=== PATIENT | male | born 1935 | race Caucasian/White ===

== ENCOUNTER 2022-05-11 18:00 | Inpatient (IN) | payer MEDICARE, BC ==
[2022-05-11] MEDS ORDERED: SODIUM CHLORIDE 0.9% 1,000 ML IV STA (23:03)
--- NOTE | 2022-05-11 23:06 | ED ---
Altered Mental Status HPI - General Chief Complaint: Recheck/Abnormal Lab/Rx Stated Complaint: AMS Time Seen by Provider: 05/11/22 23:03 Source: patient, family, RN notes reviewed, old records reviewed, Caregiver Mode of arrival: ambulatory Limitations: no limitations - History of Present Illness Initial Comments: This is a 86-year-old male to the emergency department for evaluation. Family is bringing patient for cognitive evaluation is in with his is cheating on him. There is no just caused him to feel this way. Patient's is apparentl y very sick and unable with us until his hands nature. Patient is being physically and verbally allegedly difficult for his to handle. Family brings patient to the ER regarding his mental condition. MD Complaint: altered mental status, confusion -: unknown Consistency of Symptoms: waxing and waning, getting worse Context: history of similar presentation Associated Symptoms: denies other symptoms Treatments Prior to Arrival: other pre-hospital medication (0) - Related Data Home Medications Medication Instructions Recorded Confirmed No Known Home Medications 05/12/22 05/12/22 Allergies Allergy/AdvReac Type Severity Reaction Status Date / Time No Known Allergies Allergy Verified 05/12/22 09:00 Review of Systems ROS Statement: Those systems with pertinent positive or pertinent negative responses have been documented in the HPI. ROS Other: All systems not noted in ROS Statement are negative. Past Medical History Past Medical History: Atrial Fibrillation History of Any Multi-Drug Resistant Organisms: None Reported Past Surgical History: No Surgical Hx Reported Past Psychological History: No Psychological Hx Reported Smoking Status: Never smoker Past Alcohol Use History: Daily Past Drug Use History: None Reported General Exam Limitations: no limitations, altered mental status, physical limitation General appearance: alert, in no apparent distress, anxious, lethargic Head exam: Present: atraumatic, normocephalic, normal inspection Eye exam: Present: normal appearance, PERRL, EOMI. Absent: scleral icterus, conjunctival injection, periorbital swelling ENT exam: Present: normal exam, mucous membranes moist Neck exam: Present: normal inspection. Absent: tenderness, meningismus, lymphadenopathy Respiratory exam: Present: normal lung sounds bilaterally. Absent: respiratory distress, wheezes, rales, rhonchi, stridor Cardiovascular Exam: Present: regular rate, normal rhythm, normal heart sounds. Absent: systolic murmur, diastolic murmur, rubs, gallop, clicks GI/Abdominal exam: Present: soft, normal bowel sounds. Absent: distended, tenderness, guarding, rebound, rigid Extremities exam: Present: normal inspection, full ROM, normal capillary refill. Absent: tenderness, pedal edema, joint swelling, calf tenderness Back exam: Present: normal inspection Neurological exam: Present: alert, oriented X3, CN II-XII intact Psychiatric exam: Present: normal affect, normal mood Skin exam: Present: warm, dry, intact, normal color. 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 ] Respiratory 13 18 18 Rate Blood Pressure 130/76 127/74 Blood Pressure 159/99 [Right Arm] O2 Sat by Pulse 98 99 97 Oximetry - Reevaluation(s) Reevaluation #1: 05/12/22 Medical record is reviewed Reevaluation #2: 05/12/22 Patient family informed of results here in the emergency department Reevaluation #3: 05/12/22 Patient has no change in symptoms here in the ER - Consultations Consultation #1: spoke with admitting physician and they agree to admit this patient Consultation #2: Spoke with cardiology regarding troponin they are aware Medical Decision Making - Medical Decision Making 86 male in significant distress coming in for dementia reaction patient is unable to get along with his at home. Patient has significantly elevated troponin, patient will be admitted for further evaluation management - Lab Data Result diagrams: 05/13/22 07:53 05/13/22 07:53 Lab Results 05/11/22 05/11/22 05/11/22 Range/Units 23:57 23:57 23:57 WBC 4.6 (3.8-10.6) k/uL RBC 4.14 L (4.30-5.90) m/uL Hgb 11.9 L (13.0-17.5) gm/dL Hct 37.7 L (39.0-53.0) % MCV 91.1 (80.0-100.0) fL MCH 28.8 (25.0-35.0) pg MCHC 31.7 (31.0-37.0) g/dL RDW 14.9 (11.5-15.5) % Plt Count 155 (150-450) k/uL MPV 8.2 Neutrophils % 53 % Lymphocytes % 32 % Monocytes % 9 % Eosinophils % 3 % Basophils % 1 % Neutrophils # 2.4 (1.3-7.7) k/uL Lymphocytes # 1.5 (1.0-4.8) k/uL Monocytes # 0.4 (0-1.0) k/uL Eosinophils # 0.1 (0-0.7) k/uL Basophils # 0.0 (0-0.2) k/uL Hypochromasia Slight PT 10.7 (9.0-12.0) sec INR 1.0 (<1.2) APTT 24.0 (22.0-30.0) sec Sodium 139 (137-145) mmol/L Potassium 4.4 (3.5-5.1) mmol/L Chloride 105 (98-107) mmol/L Carbon Dioxide 27 (22-30) mmol/L Anion Gap 7 mmol/L BUN 23 H (9-20) mg/dL Creatinine 0.81 (0.66-1.25) mg/dL Est GFR (CKD-EPI)AfAm >90 (>60 ml/min/1.73 sqM) Est GFR (CKD-EPI)NonAf 80 (>60 ml/min/1.73 sqM) Glucose 108 H (74-99) mg/dL Plasma Lactic Acid Giovany (0.7-2.0) mmol/L Calcium 9.0 (8.4-10.2) mg/dL Phosphorus 3.6 (2.5-4.5) mg/dL Magnesium 2.2 (1.6-2.3) mg/dL Total Bilirubin 0.6 (0.2-1.3) mg/dL AST 47 (17-59) U/L ALT 22 (4-49) U/L Alkaline Phosphatase 74 (38-126) U/L Ammonia (<30) umol/L Troponin I (0.000-0.034) ng/mL Total Protein 7.3 (6.3-8.2) g/dL Albumin 4.4 (3.5-5.0) g/dL 05/11/22 05/11/22 Range/Units 23:57 23:57 WBC (3.8-10.6) k/uL RBC (4.30-5.90) m/uL Hgb (13.0-17.5) gm/dL Hct (39.0-53.0) % MCV (80.0-100.0) fL MCH (25.0-35.0) pg MCHC (31.0-37.0) g/dL RDW (11.5-15.5) % Plt Count (150-450) k/uL MPV Neutrophils % % Lymphocytes % % Monocytes % % Eosinophils % % Basophils % % Neutrophils # (1.3-7.7) k/uL Lymphocytes # (1.0-4.8) k/uL Monocytes # (0-1.0) k/uL Eosinophils # (0-0.7) k/uL Basophils # (0-0.2) k/uL Hypochromasia PT (9.0-12.0) sec INR (<1.2) APTT (22.0-30.0) sec Sodium (137-145) mmol/L Potassium (3.5-5.1) mmol/L Chloride (98-107) mmol/L Carbon Dioxide (22-30) mmol/L Anion Gap mmol/L BUN (9-20) mg/dL Creatinine (0.66-1.25) mg/dL Est GFR (CKD-EPI)AfAm (>60 ml/min/1.73 sqM) Est GFR (CKD-EPI)NonAf (>60 ml/min/1.73 sqM) Glucose (74-99) mg/dL Plasma Lactic Acid Giovany 1.3 (0.7-2.0) mmol/L Calcium (8.4-10.2) mg/dL Phosphorus (2.5-4.5) mg/dL Magnesium (1.6-2.3) mg/dL Total Bilirubin (0.2-1.3) mg/dL AST (17-59) U/L ALT (4-49) U/L Alkaline Phosphatase (38-126) U/L Ammonia <9 (<30) umol/L Troponin I 6.010 H* (0.000-0.034) ng/mL Total Protein (6.3-8.2) g/dL Albumin (3.5-5.0) g/dL - EKG Data -: EKG Interpreted by Me (EKG is paced at 60 NM 50 QRS 90 QTC) - Radiology Data Radiology results: report reviewed (CT brain is negative for acute disease), image reviewed Disposition Clinical Impression: NSTEMI (non-ST elevated myocardial infarction), Elevated troponin, Stress reaction Disposition: ADMITTED IP TO THIS HOSP Condition: Fair Is patient prescribed a controlled substance at d/c from ED?: No
--- NOTE | 2022-05-11 23:56 | CT ---
EXAMINATION TYPE: CT brain wo con DATE OF EXAM: 05/11/2022 COMPARISON: 05/03/2016 HISTORY: AMS/weakness. prior on PACS CT DLP: 1107.4 mGycm Automated exposure control for dose reduction was used. Ventricles are enlarged. There is cerebral cortical atrophy. There is no mass effect or midline shift . No sign of intracranial hemorrhage. Calvarium is intact. Skull base is intact. IMPRESSION: Cerebral atrophy and hydrocephalus. There is more noticeable atrophy in the temporal lobes in the mid dle cranial fossa bilaterally which has progressed compared to older exam. This was the area of acute subdural hemorrhage on old CT scan. No acute intracranial abnormality. 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
[2022-05-12 00:02] LABS: Basophils % (A) 1 %; Eosinophils # (A) 0.1 k/uL (0-0.7); Eosinophils % (A) 3 %; HCT 37.7 % (39.0-53.0); HGB 11.9 gm/dL (13.0-17.5); Hypochromasia Slight; Lymphocytes # (A) 1.5 k/uL (1.0-4.8); Lymphocytes % (A) 32 %; MCH 28.8 pg (25.0-35.0); MCHC 31.7 g/dL (31.0-37.0); MCV 91.1 fL (80.0-100.0); Mean Platelet Volume 8.2; Monocytes # (A) 0.4 k/uL (0-1.0); Monocytes % (A) 9 %; Neutrophils # (A) 2.4 k/uL (1.3-7.7); Neutrophils % (A) 53 %; Platelet Count 155 k/uL (150-450); RBC 4.14 m/uL (4.30-5.90); RDW 14.9 % (11.5-15.5); WBC 4.6 k/uL (3.8-10.6)
[2022-05-12 00:20] LABS: Lactic Acid, Venous 1.3 mmol/L (0.7-2.0)
[2022-05-12 00:21] LABS: ALT 22 U/L (4-49); AST 47 U/L (17-59); African American GFR (CKD) >90 (>60 ml/min/1.73 sqM); Albumin 4.4 g/dL (3.5-5.0); Alkaline Phosphatase 74 U/L (38-126); Anion Gap 7 mmol/L; Blood Urea Nitrogen 23 mg/dL (9-20); Carbon Dioxide 27 mmol/L (22-30); Chloride 105 mmol/L (98-107); Glucose 108 mg/dL (74-99); Magnesium 2.2 mg/dL (1.6-2.3); Non-African American GFR(CKD) 80 (>60 ml/min/1.73 sqM); Phosphorus 3.6 mg/dL (2.5-4.5); Potassium 4.4 mmol/L (3.5-5.1); Sodium 139 mmol/L (137-145); Total Bilirubin 0.6 mg/dL (0.2-1.3); Total Protein 7.3 g/dL (6.3-8.2)
[2022-05-12 00:24] LABS: Prothrombin Time 10.7 sec (9.0-12.0)
[2022-05-12] MEDS ORDERED: TEMAZEPAM 7.5 MG CAP PO PRN (01:12)
[2022-05-12] MEDS ORDERED: NALOXONE 0.4 MG/ML 1 ML VIAL IV PRN (01:12)
[2022-05-12] MEDS ORDERED: ONDANSETRON 4 MG/2 ML VIAL IVP PRN (01:12)
[2022-05-12] MEDS ORDERED: MORPHINE SULFATE 4 MG/ML SYRINGE IV PRN (01:12)
[2022-05-12] MEDS: SODIUM CHLORIDE 0.9% 1,000 ML IV SCH (02:36)
--- NOTE | 2022-05-12 07:54 | P.HPIM ---
History of Present Illness This is a pleasant 86 years old female with past medical history of atrial fibrillation on Coumadin Respiratory documents (Son states patient cant hear out of his left ear. Son states that patient is hallucinating) However when I saw the patient he was lying in bed comfortable, he is very hard of hearing and I have to come the case with him through writing us questions very appropriately . He knows he is in the hospital. He denies chest pain or dyspnea. He denies nausea vomiting or abdominal pain. He says that sometimes he has increased frequency of urination But no dizziness or headache or weakness or numbness. States he can walk. He denies smoking, illicit drugs. He says occasionally he drinks wine. He denies taking a blood thinner at home and he denies seeing any envelope patternmaker When I told him you have a heart problem he got surprised No family member at bedside Vitas looks stable and patient is afebrile Labs reviewed showed an unremarkable CBC, INR, BMP and liver enzymes. Hemoglobin slightly low at 11.9. Creatinine normal 0.8. Troponin elevated 6.0 on 5.9. EKG showing atrial paced rhythm CT of the brain: No acute intracranial abnormality. 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 HEENT: No recent visual problems or hearing problems. Denied any sore throat. CARDIOVASCULAR: No orthopnea, PND, no palpitations, no syncope. PULMONARY: No shortness of breath, no cough, no hemoptysis. GASTROINTESTINAL: No diarrhea, no nausea, no vomiting, no abdominal pain. Normoactive bowel sounds. NEUROLOGICAL: No headaches, no weakness, no numbness. HEMATOLOGICAL: Denies any bleeding or petechiae. GENITOURINARY: Denies any burning micturition, frequency, or urgency. MUSCULOSKELETAL/RHEUMATOLOGICAL: Denies any joint pain, swelling, or any muscle pain. ENDOCRINE: Denies any polyuria or polydipsia. Past Medical History Past Medical History: Atrial Fibrillation History of Any Multi-Drug Resistant Organisms: None Reported Past Surgical History: No Surgical Hx Reported Past Psychological History: No Psychological Hx Reported Smoking Status: Never smoker Past Alcohol Use History: Daily Past Drug Use History: None Reported Medications and Allergies Home Medications Medication Instructions Recorded Confirmed Type Warfarin [Coumadin] 1 tab PO DAILY 05/03/16 05/03/16 History Allergies Allergy/AdvReac Type Severity Reaction Status Date / Time No Known Allergies Allergy Verified 05/11/22 20:31 Physical Exam Vitals: Vital Signs Temp Pulse Resp BP Pulse Ox 05/12/22 05:28 59 L 13 130/76 98 05/12/22 04:05 60 13 99 05/12/22 00:52 61 12 135/77 98 05/11/22 20:24 97.9 F 60 18 129/76 100 Intake and Output 05/11/22 05/11/22 05/12/22 14:59 22:59 06:59 Other: Weight 77.111 kg -GENERAL: The patient is alert and oriented x3, not in any acute distress. Well developed, well nourished. very hard of hearing HEENT: Pupils are round and equally reacting to light. EOMI. No scleral icterus. No conjunctival pallor. Normocephalic, atraumatic. No pharyngeal erythema. No thyromegaly. CARDIOVASCULAR: S1 and S2 present. No murmurs, rubs, or gallops. PULMONARY: Chest is clear to auscultation, no wheezing or crackles. ABDOMEN: Soft, nontender, nondistended, normoactive bowel sounds. No palpable organomegaly. MUSCULOSKELETAL: No joint swelling or deformity. EXTREMITIES: No cyanosis, clubbing, or pedal edema. NEUROLOGICAL: Gross neurological examination did not reveal any focal deficits. SKIN: No rashes. No petechiae Results CBC & Chem 7: 05/11/22 23:57 05/11/22 23:57 Labs: Abnormal Lab Results - Last 24 Hours (Table) 05/11/22 05/11/22 05/11/22 Range/Units 23:57 23:57 23:57 RBC 4.14 L (4.30-5.90) m/uL Hgb 11.9 L (13.0-17.5) gm/dL Hct 37.7 L (39.0-53.0) % BUN 23 H (9-20) mg/dL Glucose 108 H (74-99) mg/dL Troponin I 6.010 H* (0.000-0.034) ng/mL 05/12/22 Range/Units 03:31 RBC (4.30-5.90) m/uL Hgb (13.0-17.5) gm/dL Hct (39.0-53.0) % BUN (9-20) mg/dL Glucose (74-99) mg/dL Troponin I 5.920 H* (0.000-0.034) ng/mL Assessment and Plan Assessment: Elevated troponin, patient is asymptomatic. rule out cardiac causes Severe hearing difficulty Questionable history Chronic atrial fibrillation on Coumadin with subtherapeutic INR on admission. encephalomalacia in both temporal lobes on computed tomography scan of the brain Plan: This is a pleasant 86 years old male who presents with non-STEMI Do serial troponin check echocardiogram Send urine analysis Labs and medication were reviewed.. Continue same treatment. Continue with symptomatic treatment. Resume home medication. Monitor lytes and vitals. DVT and GI prophylaxis. Further recommendations depends on the clinical course of the patient DVT prophylaxis: Subcutaneous heparin GI Prophylaxis: Pepcid Prognosis is guarded
[2022-05-12] MEDS ORDERED: HEPARIN SODIUM 1,000 UN/ML (10ML VL) IV PRN (08:06)
[2022-05-12] MEDS ORDERED: HEPARIN SODIUM 1,000 UN/ML (10ML VL) IV ONE (08:06)
[2022-05-12] MEDS ORDERED: FAMOTIDINE 20 MG/2 ML VIAL IV SCH (09:00)
[2022-05-12] MEDS ORDERED: HEPARIN SODIUM,PORCINE/PF 5,000 UNIT/0.5 ML SYRINGE SQ SCH (09:00)
[2022-05-12] MEDS: ATORVASTATIN 40 MG TAB PO SCH ×2 (10:28→10:46)
[2022-05-12] MEDS: ASPIRIN 81 MG PO SCH (10:46)
[2022-05-12] MEDS: METOPROLOL TARTRATE 25 MG TAB PO SCH ×2 (10:46→21:14)
[2022-05-12 11:18] LABS: Chol/HDL Ratio 5.05 Ratio; LDL Cholesterol,Calculated 142.8 mg/dL (0.0-131.0); VLDL Calculation 16.76 mg/dL (5.00-40.00)
[2022-05-12] MEDS: HEPARIN SOD,PORK IN 0.45% NACL 25,000 UNIT in 0.45% NACL 1 250ML.BAG IV SCH (11:20)
--- NOTE | 2022-05-12 11:49 | P.CRDCN ---
History of Present Illness History of present illness: HISTORY OF PRESENTING ILLNESS This is a pleasant 86-year-old male past medical history significant for paroxysmal atrial fibrillation previous on anticoagulation stopped secondary to bleeding risk (patient fell hit head and had hemorrhagic bleed per son), pacemaker implantation (unknown details). Unknown who the patients health and wellness coordinator is. We have been asked to see in consultation for elevated troponin. Patient is alert, oriented to person, knows he is in the hospital, unsure of the year. He is able to answer questions appropriately. Hard of hearing. He cannot accurately state why he is in the hospital. Spoke with patient's son on the phone per patient's request, per son patient has been "yelling in his sleep, and seeing things that are not there". He states that recently has been accusing family members of inaccurate situations. He brought the patient to the emergency department for further evaluation. Patient has not been having any symptoms of chest pain, shortness of breath, lightheadedness, dizziness, nausea, vomiting, fever, cough, chills, headaches, weakness or numbness. Patient does not have a known history of CAD, [place], stroke, diabetes or hypertension. Patient states only medications he takes is aspirin daily. Denies tobacco use. States he does occasionally drink wine. DIAGNOSTICS EKG reveals atrial paced rhythm, T-wave inversions in lateral leads and V4-V6, which is new from prior EKG in 2016. Brain CT report revealed no sign of intracranial hemorrhage, or acute intracranial abnormality. More noticeable atrophy in the temporal lobes in the middle cranial fossa bilaterally which has progressed compared to old exam. Laboratory reviewed, troponin 6.0, 5.9, 5.4, sodium 139, potassium 4.4, BUN 23, serum creatinine 0.8, magnesium 2.2, WBC 4.6, hemoglobin 11.9, platelets 155 Current home cardiac medications include aspirin daily REVIEW OF SYSTEMS At the time of my exam: CONSTITUTIONAL: Denies fever or chills. CARDIOVASCULAR: Denies chest pain, shortness of breath, orthopnea, PND or palpitations. RESPIRATORY: Denies cough. GASTROINTESTINAL: Denies abdominal pain, diarrhea, constipation, nausea or vomiting. MUSCULOSKELETAL: Denies myalgias. NEUROLOGIC: Denies numbness, tingling, headacbe or weakness. ENDOCRINE: Denies fatigue, weight change, polydipsia or polyurina. GENITOURINARY: Denies burning, hematuria or urgency with micturation. HEMATOLOGIC: Denies history of anemia or bleeding. PHYSICAL EXAMINATION Blood pressure 127/74, heart rate 60, afebrile, oxygen saturations 97% on room air CONSTITUTIONAL: No apparent distress. HEENT: Head is normocephalic. Pupils are equal, round. Sclerae anicteric. Mucous membranes of the mouth are moist. No JVD. No carotid bruit. CHEST EXAMINATION: Lungs are clear to auscultation. No chest wall tenderness is noted on palpation or with deep breathing. HEART EXAMINATION: Regular rate and rhythm. S1, S2 heard. No murmurs, gallops or rub. ABDOMEN: Soft, nontender. Positive bowel sounds. EXTREMITIES: 2+ peripheral pulses, no lower extremity edema and no calf tenderness. NEUROLOGIC EXAMINATION: Patient is awake, alert and oriented x3. ASSESSMENT Elevated troponin, possible NSTEMI Altered mental status History of paroxysmal atrial fibrillation not on anticoagulation secondary to bleeding risk History of pacemaker implantation PLAN Obtain 2D echocardiogram and doppler study to assess cardiac structure and function. Start IV Heparin Start aspirin, statin, metoprolol tartrate 25mg BID Spoke with patient's son in detail he states that his father has been very adamant on no surgery/invasive procedures. Further recommendations based on clinical course Nurse practitioner note has been reviewed by physician. Signing provider agrees with the documented findings, assessment, and plan of care. Past Medical History Past Medical History: Atrial Fibrillation History of Any Multi-Drug Resistant Organisms: None Reported Past Surgical History: No Surgical Hx Reported Past Psychological History: No Psychological Hx Reported Smoking Status: Never smoker Past Alcohol Use History: Daily Past Drug Use History: None Reported Medications and Allergies Home Medications Medication Instructions Recorded Confirmed Type No Known Home Medications 05/12/22 05/12/22 History Allergies Allergy/AdvReac Type Severity Reaction Status Date / Time No Known Allergies Allergy Verified 05/12/22 09:00 Physical Exam Vitals: Vital Signs Temp Pulse Resp BP Pulse Ox 05/12/22 05:28 59 L 13 130/76 98 05/12/22 04:05 60 13 99 05/12/22 00:52 61 12 135/77 98 05/11/22 20:24 97.9 F 60 18 129/76 100 Intake and Output 05/11/22 05/12/22 05/12/22 22:59 06:59 14:59 Other: Weight 77.111 kg Results 05/11/22 23:57 05/11/22 23:57 Cardiac Enzymes 05/11/2222 05/12/22 Range/Units 23:57 23:57 03:31 AST 47 (17-59) U/L Troponin I 6.010 H* 5.920 H* (0.000-0.034) ng/mL Coagulation 05/11/22 Range/Units 23:57 PT 10.7 (9.0-12.0) sec APTT 24.0 (22.0-30.0) sec CBC 05/11/22 Range/Units 23:57 WBC 4.6 (3.8-10.6) k/uL RBC 4.14 L (4.30-5.90) m/uL Hgb 11.9 L (13.0-17.5) gm/dL Hct 37.7 L (39.0-53.0) % Plt Count 155 (150-450) k/uL Comprehensive Metabolic Panel 05/11/22 Range/Units 23:57 Sodium 139 (137-145) mmol/L Potassium 4.4 (3.5-5.1) mmol/L Chloride 105 (98-107) mmol/L Carbon Dioxide 27 (22-30) mmol/L BUN 23 H (9-20) mg/dL Creatinine 0.81 (0.66-1.25) mg/dL Glucose 108 H (74-99) mg/dL Calcium 9.0 (8.4-10.2) mg/dL AST 47 (17-59) U/L ALT 22 (4-49) U/L Alkaline Phosphatase 74 (38-126) U/L Total Protein 7.3 (6.3-8.2) g/dL Albumin 4.4 (3.5-5.0) g/dL Current Medications Generic Name Dose Route Start Last Admin Trade Name Freq PRN Reason Stop Dose Admin Aspirin 81 mg 05/12/22 09:00 Aspirin 81 Mg PO DAILY [facility] Atorvastatin Calcium 80 mg 05/12/22 09:00 Atorvastatin 40 Mg Tab PO DAILY [facility] Famotidine 20 mg 05/12/22 09:00 Famotidine 20 Mg/2 Ml Vial IV Q12HR [facility] Heparin Sodium (Porcine) 0 unit 05/12/22 08:06 Heparin Sodium 1,000 Un/Ml (10ml Vl) IV PER PROTOCOL PRN Low PTT Protocol Sodium Chloride 1,000 mls @ 20 mls/hr 05/12/22 01:15 05/12/22 02:36 Saline 0.9% IV 20 mls/hr .Q24H ANYA Administration Heparin Sodium/Sodium Chloride 250 mls @ 9.253 mls/hr 05/12/22 08:15 25,000 unit/ Sodium Chloride IV .Q24H NAYA Protocol 12 UNITS/KG/HR Morphine Sulfate 4 mg 05/12/22 01:12 Morphine Sulfate 4 Mg/Ml Syringe IV Q4HR PRN Severe Pain Naloxone HCl 0.2 mg 05/12/22 01:12 Naloxone 0.4 Mg/Ml 1 Ml Vial IV Q2M PRN Opioid Reversal Ondansetron HCl 4 mg 05/12/22 01:12 Ondansetron 4 Mg/2 Ml Vial IVP Q8HR PRN Nausea And Vomiting Temazepam 15 mg 05/12/22 01:12 Temazepam 7.5 Mg Cap PO HS PRN Insomnia Intake and Output 05/11/22 05/12/22 05/12/22 22:59 06:59 14:59 Other: Weight 77.111 kg 05/11/22 23:57 05/11/22 23:57
--- NOTE | 2022-05-12 12:27 | CA ---
Transthoracic Echo Report Name: Jace Guthrie Age: 86 Gender: M : 1935 Exam Date: 05/12/2022 09:47 Exam Location: [facility] Ht (in): 65 Wt (lb): 170 Ordering Physician: Lex Nicolas MD Attending/Referring Phys: Manugrapher Nathaly Ely RDCS Procedure CPT: Indications: Rule out heart disease Cardiac Hx: Technical Quality: Fair Contrast 1: Total Dose (mL): Contrast 2: Total Dose (mL): MEASUREMENTS (Male / Female) Normal Values 2D ECHO LV Diastolic Diameter PLAX 4.1 cm 4.2 - 5.9 / 3.9 - 5.3 cm LV Systolic Diameter PLAX 2.0 cm IVS Diastolic Thickness 1.6 cm 0.6 - 1.0 / 0.6 - 0.9 cm LVPW Diastolic Thickness 1.8 cm 0.6 - 1.0 / 0.6 - 0.9 cm LV Relative Wall Thickness 0.8 RV Internal Dim ED PLAX 3.1 cm LA Volume 48.6 cm??? 18 - 58 / 22 - 52 cm??? M-MODE Aortic Root Diameter MM 3.1 cm LA Systolic Diameter MM 3.7 cm LA Ao Ratio MM 1.2 AV Cusp Separation MM 1.8 cm DOPPLER AV Peak Velocity 149.4 cm/s AV Peak Gradient 8.9 mmHg AI Peak Velocity 422.0 cm/s AI Peak Gradient 71.2 mmHg AI Pressure Half Time 657.0 ms LVOT Peak Velocity 77.9 cm/s LVOT Peak Gradient 2.4 mmHg MV Area PHT 3.1 cm??? Mitral E Point Velocity 78.3 cm/s Mitral A Point Velocity 38.9 cm/s Mitral E to A Ratio 2.0 MV Deceleration Time 241.9 ms MV E' Velocity 4.2 cm/s Mitral E to MV E' Ratio 18.5 TR Peak Velocity 313.4 cm/s TR Peak Gradient 39.3 mmHg Right Ventricular Systolic Press 44.1 mmHg FINDINGS Left Ventricle Moderately increased left ventricular wall thickness. Left ventricular ejection fraction is estimated at 45-50 %. Questionable mid anterior and apical lateral wall hypokinesis. Right Ventricle Normal right ventricular size. Mild pulmonary hypertension. Right Atrium Normal right atrial size. Catheter/pacemaker wire in the right atrial cavity. Left Atrium Normal left atrial size. No evidence for an atrial septal defect. Mitral Valve Mild mitral annular calcification. Mild mitral regurgitation. Aortic Valve Trileaflet aortic valve. Aortic valve sclerosis. Mild aortic regurgitation. Tricuspid Valve Mild tricuspid regurgitation. Pulmonic Valve Mild pulmonic regurgitation. Pericardium No pericardial effusion. Aorta Normal size aortic root and proximal ascending aorta. CONCLUSIONS Mild LV systolic dysfunction with an ejection fraction of 45% Anteroapical hypokinesis Atypical septal motion Mild mitral and dilated regurgitation Previewed by: Dr. Sedrick Dyer MD (Electronically Signed) Final Date: 12 May 2022 12:26
--- NOTE | 2022-05-12 13:51 | P.CN ---
Psychiatric Consult - . Consult date: 05/12/22 Consult:: 05/12/22 12:13 IDENTIFYING DATA: This patient is a 86 yo male REASON FOR REFERRAL: Psychiatry was consulted for "stress" HISTORY OF PRESENT ILLNESS: The patient presented to the hospital for concerns of chest pain. Patient apparently had elevated troponins and was found to have an an NSTEMI. Cardiology is on board and currently following patient. Patient's nurse states that his was concerned that patient was acting "delusional" and believes that she was cheating on him. Patient was seen in the room today about to eat his lunch and acknowledged automobile service writer for conversation. Patient was difficult to direct during conversation and was loud at times. 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 Patient was a poor historian and gave unreliable history and was focused on wanting to eat his food and asked for help with his tray. He appeared to have fairly poor insight into his need for treatment and eating in the hospital. Patient did not endorse any anxiety or depression is not endorsing any delusions at this time. He was oriented 3, poor concentration. At this time patient denies any suicidal or homical ideations, intent or plan. Patient denies any auditory, visual hallucinations and denies any paranoia or delusions. Patient did get upset at automobile service writer towards the end of the interview and stated "Im not a mental case, get out of here". Rest of history was unable to be obtained from patient. PAST PSYCHIATRIC HISTORY: Patient has a a history of dementia. PAST MEDICAL HISTORY: Atrial Fibrillation ALLERGIES: as per EMR. CHEMICAL DEPENDENCY HISTORY: Unable to obtain FAMILY PSYCHIATRIC/SUBSTANCE USE HISTORY: unable to obtain SOCIAL HISTORY: unable to assess MENTAL STATUS EXAM: General Appearance: Patient appears to be short in stature, stated age is alert, difficult to redirect and communicate with. Patient appears to have fair hygiene and grooming wearing hospital gown with fair eye contact. Behavior: Patient is calmly sitting on side of bed without any agitated beha vior. Speech: Patient's speech is fluent and nonpressured. loud at times. Mood/Affect: Patient reports their mood is "ok", affect is congruent Suicidality/Homicidality: Patient denies having any suicidal or homicidal ideation intent or plan. Perceptions: Patient denies any visual hallucinations and denies any auditory hallucinations Though content/process: poverty of content. concrete. demanding at times. not endorsing paranoia. Memory and concentration: AOX3, poor concentration. Cannot spell "WORLD" backwards Judgment and insight: poor IMPRESSIONS: Dementia without behavioral disturbances PLAN: -At this time patient DOES NOT meet criteria for inpatient psychiatric admission. -Delirium precautions recommended with patient including - avoiding use of narcotics and COMPLIANCE INVESTIGATOR sedatives, limit anticholinergic medications when possible, frequent re-orientation, minimize use of restraints, open window shades during the day and close them at night -Would recommend the following medication changes/additions: Seroquel 12.5 mg qhs for sleep/paranoia. -pony worker to provide patient with outpatient mental health/psychiatry resources for appropriate follow up upon discharge -Bpm Solution Architect spoke with patient about substance abuse and the harmful effects on medical and mental health, patient verbally understood and agreed. -Communicated plan to patient's nurse -Psychiatry will sign off at this time -Please contact with any questions.
[2022-05-12] MEDS ORDERED: HALOPERIDOL LACTATE 5 MG/ML 1 ML VIAL IVP ONE (16:30)
[2022-05-12 17:09] LABS: Appearance,Urine Clear (Clear); Bilirubin,Urine Negative (Negative); Blood,Urine Negative (Negative); Color,Urine Yellow; Glucose,Urine (UA) Negative (Negative); Ketones,Urine Negative (Negative); Leukocyte Esterase,Urine Negative (Negative); Nitrite,Urine Negative (Negative); PH, Urine 5.5 (5.0-8.0); Protein,Urine Negative (Negative); Specific Gravity,Urine 1.013 (1.001-1.035); Urobilinogen,Urine <2.0 mg/dL (<2.0)
[2022-05-12] MEDS: QUEtiapine 25 MG TAB PO SCH (21:14)
[2022-05-12] MEDS: FAMOTIDINE 20 MG TAB PO SCH (21:14)
--- NOTE | 2022-05-13 02:05 | CT ---
EXAM: CT Head Without Intravenous Contrast CLINICAL HISTORY: ITS.REASON CT Reason: confusion TECHNIQUE: Axial computed tomography images of the head/brain without intravenous contrast. CTDI is 49.1 mGy and DLP is 1121 mGy-cm. This CT exam was performed using one or more of the following dose reduction techniques: automated exposure control, adjustment of the mA and/or kV according to patient size, and/or use of iterative reconstruction technique. COMPARISON: Comparison made to prior head CT from May 11, 2022. FINDINGS: Brain: Remote injuries of the bilateral inferofrontal and temporal lobes with encephalomalacia and gliosis. No hemorrhage. No significant white matter disease. No edema. Ventricles: Ventriculomegaly. Bones/joints: Unremarkable. No acute fracture. Soft tissues: Right lens replacement. Sinuses: Unremarkable as visualized. No acute sinusitis. Mastoid air cells: Unremarkable as visualized. No mastoid effusion. IMPRESSION: No evidence of acute intracranial pathology.
[2022-05-13] MEDS: SODIUM CHLORIDE 0.9% 1,000 ML IV SCH ×2 (02:59→12:31)
[2022-05-13] MEDS: ATORVASTATIN 40 MG TAB PO SCH ×2 (08:01→09:24)
[2022-05-13] MEDS: ASPIRIN 81 MG PO SCH (08:01)
[2022-05-13] MEDS: METOPROLOL TARTRATE 25 MG TAB PO SCH ×2 (08:01→20:53)
[2022-05-13] MEDS: FAMOTIDINE 20 MG TAB PO SCH (08:02)
[2022-05-13] MEDS ORDERED: HALOPERIDOL LACTATE 5 MG/ML 1 ML VIAL IVP PRN (08:26)
[2022-05-13 09:24] LABS: Basophils % (A) 0 %; Eosinophils # (A) 0.1 k/uL (0-0.7); Eosinophils % (A) 3 %; HCT 38.4 % (39.0-53.0); HGB 12.2 gm/dL (13.0-17.5); Hypochromasia Slight; Lymphocytes # (A) 0.8 k/uL (1.0-4.8); Lymphocytes % (A) 18 %; MCH 29.1 pg (25.0-35.0); MCHC 31.7 g/dL (31.0-37.0); MCV 91.8 fL (80.0-100.0); Mean Platelet Volume 8.5; Monocytes # (A) 0.3 k/uL (0-1.0); Monocytes % (A) 6 %; Neutrophils # (A) 3.4 k/uL (1.3-7.7); Neutrophils % (A) 72 %; Platelet Count 159 k/uL (150-450); RBC 4.18 m/uL (4.30-5.90); RDW 15.1 % (11.5-15.5); WBC 4.7 k/uL (3.8-10.6)
[2022-05-13 09:26] LABS: Partial Thromboplastin Time 65.6 sec (22.0-30.0); Prothrombin Time 11.1 sec (9.0-12.0)
[2022-05-13 09:36] LABS: Calcium 8.8 mg/dL (8.4-10.2); Potassium 4.3 mmol/L (3.5-5.1)
[2022-05-13] MEDS: HEPARIN SOD,PORK IN 0.45% NACL 25,000 UNIT in 0.45% NACL 1 250ML.BAG IV SCH (11:44)
[2022-05-13] MEDS: CLOPIDOGREL 75 MG TAB PO SCH (11:45)
--- NOTE | 2022-05-13 12:15 | P.PN ---
Subjective This is a pleasant 86-year-old male past medical history significant for paroxysmal atrial fibrillation previous on anticoagulation stopped secondary to bleeding risk (patient fell hit head and had hemorrhagic bleed per son), pacemaker implantation at [place] years ago per family. Unknown who the patients picking supervisor is. Daughter states he did get a generator change years ago at [place]. We have been asked to see in consultation for elevated troponin. Patient presented to the ER for evaluation secondary to altered mental status. He is a poor historian. He cannot accurately state why he is in the hospital. Per family patient has been "yelling in his sleep, and seeing things that are not there". He states that recently has been accusing family members of inaccurate situations. Patient has not been having any symptoms of chest pain, shortness of breath, lightheadedness, dizziness, nausea, vomiting, fever, cough, chills, headaches, weakness or numbness. Patient does not have a known history of CAD, [place], stroke, diabetes or hypertension. Patient states only medications he takes is aspirin daily. Denies tobacco use. On admission patient found to have troponin elevation of 6.0, 5.9, 5.4, Echo revealed EF 45%, anteroapical hypokinesis, atypical septal motion, mild mitral dilated regurgitation. Patient seen and examined at bedside, patient is lethargic, no complaints. Daughter at bedside. Vitals signs are stable. He is currently maintained on IV heparin drip, aspirin, statin, beta eduarda. PHYSICAL EXAMINATION Vitals reviewed CONSTITUTIONAL: No apparent distress. HEENT: Neck Supple. No JVD. No carotid bruit. CHEST EXAMINATION: Lungs are clear to auscultation. No chest wall tenderness is noted on palpation or with deep breathing. HEART EXAMINATION: Regular rate and rhythm. S1, S2 heard. No murmurs, gallops or rub. ABDOMEN: Soft, nontender. Positive bowel sounds. EXTREMITIES: 2+ peripheral pulses, no lower extremity edema and no calf tenderness. NEUROLOGIC EXAMINATION: Patient is awake, alert and oriented x3. ASSESSMENT Elevated troponin, possible NSTEMI Altered mental status History of paroxysmal atrial fibrillation not on anticoagulation secondary to bleeding risk History of pacemaker implantation Cardiomyopathy with EF 45%, ischemic vs non-ischemic PLAN Stop IV heparin Start low dose ACEI lisinopril 2.5mg daily Start aspirin, statin, metoprolol tartrate 25mg BID Spoke with patient's son an daughter in detail, they state the patient would not want any surgery/invasive procedures and they would like to continue with medical therapy. Patient's code status has changed to DNR. We will continue to follow patient and make adjustments accordingly Nurse practitioner note has been reviewed by physician. Signing provider agrees with the documented findings, assessment, and plan of care. Objective - Vital Signs Vital signs: Vital Signs Temp 97.6 F 05/13/22 08:00 Pulse 60 05/13/22 08:00 Resp 18 05/13/22 04:00 BP 137/75 05/13/22 08:00 Pulse Ox 95 05/13/22 08:00 FiO2 Intake & Output 05/12/22 05/13/22 05/13/22 18:59 06:59 18:59 Output Total 340 Balance -340 Weight 77.111 kg Output: Urine 340 Straight 320 Other: Voiding Method Toilet Urinal Bedside Commode # Voids 2 1 - Labs CBC & Chem 7: 05/13/22 07:53 05/13/22 07:53 Labs: Abnormal Lab Results - Last 24 Hours (Table) 05/12/22 05/12/22 05/13/22 Range/Units 14:05 17:06 07:53 RBC (4.30-5.90) m/uL Hgb (13.0-17.5) gm/dL Hct (39.0-53.0) % Lymphocytes # (1.0-4.8) k/uL APTT 55.0 H 50.7 H 65.6 H (22.0-30.0) sec 05/13/22 Range/Units 07:53 RBC 4.18 L (4.30-5.90) m/uL Hgb 12.2 L (13.0-17.5) gm/dL Hct 38.4 L (39.0-53.0) % Lymphocytes # 0.8 L (1.0-4.8) k/uL APTT (22.0-30.0) sec
[2022-05-13] MEDS: QUEtiapine 25 MG TAB PO SCH (20:53)
--- NOTE | 2022-05-13 21:18 | P.PN ---
Subjective This is a pleasant 86 years old female with past medical history of atrial fibrillation on Coumadin Respiratory documents (Son states patient cant hear out of his left ear. Son states that patient is hallucinating) However when I saw the patient he was lying in bed comfortable, he is very hard of hearing and I have to come the case with him through writing us questions very appropriately . He knows he is in the hospital. He denies chest pain or dyspnea. He denies nausea vomiting or abdominal pain. He says that sometimes he has increased frequency of urination But no dizziness or headache or weakness or numbness. States he can walk. He denies smoking, illicit drugs. He says occasionally he drinks wine. He denies taking a blood thinner at home and he denies seeing any operations research manager When I told him you have a heart problem he got surprised No family member at bedside Vitas looks stable and patient is afebrile Labs reviewed showed an unremarkable CBC, INR, BMP and liver enzymes. Hemoglobin slightly low at 11.9. Creatinine normal 0.8. Troponin elevated 6.0 on 5.9. EKG showing atrial paced rhythm CT of the brain: No acute intracranial abnormality. Encephalomalacia in both temporal lobes In the emergency room patient received normal saline Pediatric Care Coordinator and psychiatric were consulted 05/13/2022 yesterday patient was more agitated overnight, CT of the brain showing no acute hemorrhage, today daughter at bedside to that one month ago he was normally functional before he started getting more confusion lately over the last few days and weeks. Once family was requesting for the neurologist evaluation. Other than that he is hemodynamically stable, laps looks stable. Heparin drip was stopped and patient started on Plavix and continued on small dose of lisinopril, aspirin and statin. CODE STATUS I changed to DO NOT RESUSCITATE today per family Objective - Vital Signs Vital signs: Vital Signs Temp 97.6 F 05/13/22 08:00 Pulse 60 05/13/22 08:00 Resp 18 05/13/22 04:00 BP 137/75 05/13/22 08:00 Pulse Ox 95 05/13/22 08:00 FiO2 Intake & Output 05/12/22 05/13/22 05/13/22 18:59 06:59 18:59 Output Total 340 Balance -340 Weight 77.111 kg Output: Urine 340 Straight 320 Other: Voiding Method Toilet Urinal Bedside Commode # Voids 2 1 - Exam -GENERAL: The patient is alert and awake, calm, hard of hearing not in any acute distress. Well developed, well nourished. HEENT: Pupils are round and equally reacting to light. EOMI. No scleral icterus. No conjunctival pallor. Normocephalic, atraumatic. No pharyngeal erythema. No thyromegaly. CARDIOVASCULAR: S1 and S2 present. No murmurs, rubs, or gallops. PULMONARY: Chest is clear to auscultation, no wheezing or crackles. ABDOMEN: Soft, nontender, nondistended, normoactive bowel sounds. No palpable organomegaly. MUSCULOSKELETAL: No joint swelling or deformity. EXTREMITIES: No cyanosis, clubbing, or pedal edema. NEUROLOGICAL: Gross neurological examination did not reveal any focal deficits. SKIN: No rashes. no petechiae. - Labs CBC & Chem 7: 05/13/22 07:53 05/13/22 07:53 Labs: Abnormal Lab Results - Last 24 Hours (Table) 05/12/22 05/12/22 05/13/22 Range/Units 14:05 17:06 07:53 RBC (4.30-5.90) m/uL Hgb (13.0-17.5) gm/dL Hct (39.0-53.0) % Lymphocytes # (1.0-4.8) k/uL APTT 55.0 H 50.7 H 65.6 H (22.0-30.0) sec 05/13/22 Range/Units 07:53 RBC 4.18 L (4.30-5.90) m/uL Hgb 12.2 L (13.0-17.5) gm/dL Hct 38.4 L (39.0-53.0) % Lymphocytes # 0.8 L (1.0-4.8) k/uL APTT (22.0-30.0) sec Assessment and Plan Assessment: Elevated troponin, patient is asymptomatic. rule out cardiac causes AMS, most likely metabolic encephalopathy, with possible underlying dementia Severe hearing difficulty Questionable history Chronic atrial fibrillation on Coumadin with subtherapeutic INR on admission. encephalomalacia in both temporal lobes on computed tomography scan of the brain Plan: This is a pleasant 86 years old male who presents with non-STEMI Continue with aspirin and Plavix per operations research manager Neurology consult Labs and medication were reviewed.. Continue same treatment. Continue with symptomatic treatment. Resume home medication. Monitor lytes and vitals. DVT and GI prophylaxis. Further recommendations depends on the clinical course of the patient DVT prophylaxis: Subcutaneous heparin GI Prophylaxis: Pepcid Prognosis is guarded
[2022-05-14] MEDS: METOPROLOL TARTRATE 25 MG TAB PO SCH ×2 (08:28→21:43)
[2022-05-14] MEDS: CLOPIDOGREL 75 MG TAB PO SCH (08:28)
[2022-05-14] MEDS: ATORVASTATIN 40 MG TAB PO SCH (08:28)
[2022-05-14] MEDS: FAMOTIDINE 20 MG TAB PO SCH (08:28)
[2022-05-14] MEDS: ASPIRIN 81 MG PO SCH (08:28)
[2022-05-14 09:33] LABS: Basophils % (A) 0 %; Eosinophils # (A) 0.1 k/uL (0-0.7); Eosinophils % (A) 3 %; HCT 37.9 % (39.0-53.0); HGB 11.9 gm/dL (13.0-17.5); Hypochromasia Slight; Lymphocytes # (A) 0.9 k/uL (1.0-4.8); Lymphocytes % (A) 18 %; MCH 28.9 pg (25.0-35.0); MCHC 31.3 g/dL (31.0-37.0); MCV 92.3 fL (80.0-100.0); Mean Platelet Volume 8.2; Monocytes # (A) 0.3 k/uL (0-1.0); Monocytes % (A) 7 %; Neutrophils # (A) 3.3 k/uL (1.3-7.7); Neutrophils % (A) 70 %; Platelet Count 152 k/uL (150-450); RBC 4.11 m/uL (4.30-5.90); RDW 15.5 % (11.5-15.5); WBC 4.8 k/uL (3.8-10.6)
[2022-05-14 09:43] LABS: Calcium 9.1 mg/dL (8.4-10.2); Potassium 4.5 mmol/L (3.5-5.1)
--- NOTE | 2022-05-14 11:10 | P.PN ---
Subjective This is a pleasant 86-year-old male past medical history significant for paroxysmal atrial fibrillation previous on anticoagulation stopped secondary to bleeding risk (patient fell hit head and had hemorrhagic bleed per son), pacemaker implantation at [place] years ago per family. Currently does not follow with a liquor tester. Daughter states he did get a generator change years ago at [place]. We have been asked to see in consultation for elevated troponin. Patient presented to the ER for evaluation secondary to altered mental status. He is a poor historian. He cannot accurately state why he is in the hospital. On admission patient found to have troponin elevation of 6.0, 5.9, 5.4, Echo revealed EF 45%, anteroapical hypokinesis, atypical septal motion, mild mitral dilated regurgitation. He had no symptoms of chest pain, shortness of breath. Family and patient did not want any invasive therapy and he has been treated medically. 05/14/2022 Patient seen and examined at bedside, patient is more alert this morning. He denies any complaints. No shortness of breath or chest pain. Vitals signs are stable. He is currently maintained on aspirin, statin, Plavix 75mg daily, Labs, sodium 140, potassium 4.5, BUN 22, serum creatinine 1.04, WBC 4.8, hemoglobin 11.9, platelets 152 PHYSICAL EXAMINATION Vitals reviewed blood pressure 108/59, heart rate 63, afebrile, oxygen saturation 100% on room air CONSTITUTIONAL: No apparent distress. HEENT: Neck Supple. No JVD. No carotid bruit. CHEST EXAMINATION: Lungs are clear to auscultation. No chest wall tenderness is noted on palpation or with deep breathing. HEART EXAMINATION: Regular rate and rhythm. S1, S2 heard. No murmurs, gallops or rub. ABDOMEN: Soft, nontender. Positive bowel sounds. EXTREMITIES: 2+ peripheral pulses, no lower extremity edema and no calf tenderness. NEUROLOGIC EXAMINATION: Patient is awake, alert and oriented x3. ASSESSMENT Elevated troponin, possible NSTEMI Altered mental status History of paroxysmal atrial fibrillation not on anticoagulation secondary to bleeding risk History of pacemaker implantation Cardiomyopathy with EF 45%, ischemic vs non-ischemic PLAN From a cardiology perspective, patient is stable for discharge when cleared by medicine. Continue dual antiplatelet therapy with aspirin and Plavix Continue lisinopril 2.5mg daily Continue aspirin, statin, metoprolol tartrate 25mg BID Spoke with patient's son an daughter in detail, they state the patient would not want any surgery/invasive procedures and they would like to continue with medical therapy. They also would not want anticoagulation for the patient secondary to bleeding risk. Patient's code status has changed to DNR. Nurse practitioner note has been reviewed by physician. Signing provider agrees with the documented findings, assessment, and plan of care. Objective - Vital Signs Vital signs: Vital Signs Temp 98.2 F 05/14/22 04:22 Pulse 63 05/14/22 04:22 Resp 14 05/14/22 04:22 BP 108/59 05/14/22 04:22 Pulse Ox 100 05/14/22 04:22 FiO2 Intake & Output 05/13/22 05/14/22 05/14/22 18:59 06:59 18:59 Intake Total 225.927 240 Output Total 300 200 Balance -74.073 -200 240 Intake: Intake, IV Titration 225.927 Amount Heparin Sod,Pork in 0.45% 225.927 NaCl 25,000 unit In 0.45 % NaCl 1 250ml.bag @ 12 UNITS/KG/HR 9.253 mls/hr IV .Q24H NAYA Rx#: [id number] Oral 240 Output: Urine 300 200 Other: # Voids 1 4 - Labs CBC & Chem 7: 05/14/22 08:59 05/14/22 08:59 Labs: Abnormal Lab Results - Last 24 Hours (Table) 05/14/22 05/14/22 Range/Units 08:59 08:59 RBC 4.11 L (4.30-5.90) m/uL Hgb 11.9 L (13.0-17.5) gm/dL Hct 37.9 L (39.0-53.0) % Lymphocytes # 0.9 L (1.0-4.8) k/uL BUN 22 H (9-20) mg/dL Glucose 118 H (74-99) mg/dL
--- NOTE | 2022-05-14 13:10 | P.CNNES ---
History of Present Illness Consult date: 05/14/22 Requesting physician: Lex Nicolas Reason for Consult: Confusion History of Present Illness: Patient is a 86-year-old male came to the hospital on 05/11/2022 for altered mental status, cognitive evaluation, as patient was believing that his is cheating on him. There is no just cause for him to feel this way. Patient's is apparently very sick. Patient has been very physically and verbally allegedly difficult for his to handle. Patient was brought for mental evaluation. Patient was found to have elevated troponins. Initial CT head 05/11/2022 reported cerebral atrophy and hydrocephalus. There is more noticeable atrophy in the temporal lobes in the middle cranial fossa bilaterally which has progressed compared to order exam. This was the area of acute subdural hemorrhage in the old CT. 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 Repeat CT head 05/13/2022 revealed no acute process. EKG shows electronic atrial pacemaker. 2-D echo revealed mild left ventricular systolic dysfunction with an ejection fraction of 45%. Kendrick-apical hypokinesis. Atypical septal motion. Mild mitral and tricuspid regurgitation. Blood test shows normal WBC hemoglobin 12.2 platelets 159. PT/PTT normal. Chem-7 normal. UA negative. Troponin elevated to 6.010. Lipid panel with cholesterol 199, LDL 142, HDL 39 and triglycerides 83. Ammonia is normal less than 9. Patient at this time tells me that he came to the hospital because to check out his heart. He denies headache. He states his memory is fine. He makes humerus comments like "I remember the day I was born". Patient is extremely hard of hearing, uses writing to communicate. Patient states that he uses walker when he goes outside in sometimes inside his home as well. 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 I spoke to patient's daughter on the phone, who provided excellent history. She says that about 1-1/2 weeks ago patient and his went to have a change of the car. Patient's was talking to the track mechanic, and patient believed that she was cheating on him, and he was her boyfriend. This idea sat in his mind and he continued with this misconception. He he would start yelling on his , who herself has mild dementia. Patient's daughter states that he would have a dream at night, and believes on the dream the next day. Sometimes he is in the middle of the night. She tells me that in 2016 patient was celebrating Father's Day when he drank wine, fell down, hit his head and had a subdural hematoma for which he was transferred to [facility]. He was on anticoagulants prior to the fall for atrial fibrillation. Patient was treated conservatively. Patient has been very stubborn, not goes to the doctor's. Because of high fall risk, anticoagulation was discontinued and was placed on aspirin. Patient would not even take aspirin at home, and has not been taking it. Patient's daughter admits that his balance has been off for last 1-2 years, gradually deteriorating. 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 Patient has history of prostate cancer for which she underwent radiation. Previously was having some incidence of loss of bowel control but lately it has been better. No major urine control issues at this time. Patient's daughter believes that he is still very sharp, knows what is going around the world. I spent 15 minutes on the phone with patient's daughter. Review of Systems As above in detail. Denies any chest pain, abdominal pain nausea vomiting diarrhea. No fever or chills. Patient does have some arthritis. All other review of systems reviewed are unremarkable. Patient is very hard of hearing. Past Medical History Past Medical History: Atrial Fibrillation History of Any Multi-Drug Resistant Organisms: None Reported Past Surgical History: No Surgical Hx Reported Past Anesthesia/Blood Transfusion Reactions: No Reported Reaction, Unable to Obtain Type of Cardiac Device: Unknown Device Placement Date:: 20 years ago, son says battery was just changed Past Psychological History: No Psychological Hx Reported Smoking Status: Never smoker Past Alcohol Use History: Daily Past Drug Use History: None Reported Medications and Allergies Home Medications Medication Instructions Recorded Confirmed Type No Known Home Medications 05/12/22 05/12/22 History Allergies Allergy/AdvReac Type Severity Reaction Status Date / Time No Known Allergies Allergy Verified 05/12/22 09:00 Physical Examination - Vital Signs Vital Signs: Vital Signs Temp Pulse Pulse Resp BP Pulse Ox 05/14/22 08:15 97.7 F 62 16 118/67 99 05/14/22 04:22 98.2 F 63 14 108/59 100 05/14/22 00:00 61 16 119/60 98 06/29/22 20:49 97.8 F 61 16 129/67 96 05/13/22 16:16 97.8 F 62 131/72 97 05/13/22 12:14 98.7 F 60 13 126/68 98 Intake and Output 05/13/22 05/14/22 05/14/22 22:59 06:59 14:59 Intake Total 240 Output Total 500 Balance -500 240 Intake: Oral 240 Output: Urine 500 Other: Voiding Method Urinal # Voids 4 Patient is an elderly male, very pleasant, in no acute distress. Examination took extra time because of hearing impairment and using writing to communicate. Patient is alert awake oriented to time place and person. Patient knows his name, states he is "pushing for 88" regarding his age. He states is in [facility] in [place]. He knows it is May 06 and the name of the current president Mr. Latham. Speech and language functions are normal. Patient can name and repeat. Attention, concentration and fund of knowledge is adequat e. Patient does have positive palmomental reflex bilaterally, and negative visuospatial apraxia. On cranial examination, pupils are round and reacting to light, visual sloan are full on confrontation, extraocular muscles are intact with no nystagmus. Face is symmetric, tongue protrudes to the midline. Palatal elevation and sensation normal, hearing is severely decreased, has to use writing for communication and shoulder shrug normal, facial sensation normal. Shoulder shrug normal. On muscle strength testing, there is no pronator drift and the strength is normal in arms and legs distally and proximally. Deep tendon reflexes are 1 in the upper limbs, trace in the lower limbs and plantars are withdrawal bilaterally. Sensory to touch is equal with no neglect. Cerebellar function showed no ataxia for [id number] testing. Tone and bulk of muscles normal. Gait deferred. On general examination, there is no carotid bruit or murmur, S1-S2 audible. Abdomen is soft nontender. No organomegaly, bowel sounds present. Chest is clear. Peripheral pulses are present. No edema. Results - Laboratory Findings CBC and BMP: 05/14/22 08:59 05/14/22 08:59 Abnormal Lab Findings: Abnormal Labs 05/11/22 05/11/22 05/11/22 23:57 23:57 23:57 RBC 4.14 L Hgb 11.9 L Hct 37.7 L Lymphocytes # APTT BUN 23 H Glucose 108 H Troponin I 6.010 H* LDL Cholesterol, Calc HDL Cholesterol 05/12/22 05/12/22 05/12/22 03:31 05:53 05:53 RBC Hgb Hct Lymphocytes # APTT BUN Glucose Troponin I 5.920 H* 5.420 H* LDL Cholesterol, Calc 142.8 H HDL Cholesterol 39.40 L 05/12/22 05/12/22 05/13/22 14:05 17:06 07:53 RBC Hgb Hct Lymphocytes # APTT 55.0 H 50.7 H 65.6 H BUN Glucose Troponin I LDL Cholesterol, Calc HDL Cholesterol 05/13/22 05/14/22 05/14/22 07:53 08:59 08:59 RBC 4.18 L 4.11 L Hgb 12.2 L 11.9 L Hct 38.4 L 37.9 L Lymphocytes # 0.8 L 0.9 L APTT BUN 22 H Glucose 118 H Troponin I LDL Cholesterol, Calc HDL Cholesterol Assessment and Plan Assessment: * 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 * CT head showed mildly dilated ventricles including the third ventricles, but more significant dilation of temporal horns bilaterally, right more than left. Patient has history of subdural hematoma involving bilateral temporal region in 2016. * Atrial fibrillation * Elevated cardiac enzymes, non-STEMI * Pacemaker * Hyperlipidemia Plan: * Patient has mild cognitive impairment. We will start him on Aricept 5 mg daily. Recommend patient follow up in the neurology office in 2-4 weeks for a follow-up. May consider further optimizing dose of Aricept to 10 mg after one month. 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 It appears patient declines any invasive procedure. I discussed with patient's daughter in detail. Instructed her that if his balance deteriorates, may consider neurosurgical evaluation, a hou patient is very stubborn, does not follow any invasive procedures/treatment. * Psychiatry is also seen the patient, started on Seroquel 12.5 mg at bedtime. * Check B12, folate, TSH. Family requesting testing for Lyme disease, as he is out in the yard, a lot. * Patient does have atrial fibrillation, but not on anticoagulation because of high fall risk and noncompliance with follow-up with Drs. Patient started on aspirin, Plavix 75 mg and statins for non-STEMI. Continue these medications. Discussed with patient's daughter in detail. * Lipid panel with cholesterol 199, LDL 142, HDL 39 and triglycerides 83. * Neurologically clear otherwise. Thank you for the consult. Time with Patient: Greater than 30
--- NOTE | 2022-05-14 14:50 | CDI ---
Documentation Clarification Form Date: 05/14/2022 02:38:09 PM From: Janice White RN CCDS Admit Date: 05/12/2022 01:12:00 AM Patient Name: Jace Guthrie Visit Number: [id number] Discharge Date: ATTENTION: The Clinical Documentation Specialists (CDI) and [facility] Coding Staff appreciate your assistance in clarifying documentation. Please respond to the clarification below the line at the bottom and electronically sign. The CDI & [facility] Coding staff will review the response and follow-up if needed. Please note: Queries are made part of the Legal Health Record. If you have any questions, please contact the author of this message via ITS. Dr. Burnett E Sheet Your patient has the documented diagnosis of unspecified Cardiomyopathy, 05/13, Cardiology progress note. Additional information regarding the cardiomyopathy is requested. History/Risk Factors: 86-year-old male presents to the ED with hallucinating. Medical history: Atrial fib and pacemaker. Clinical Indicators: VS/Pulse OX: 05/11 B/P 127/76 HR 60 RR 18 Temp 97.9F Oral SpO2 100% Room air. Echocardiogram Results: 05/12 mild LV systolic dysfunction with an ejection fraction of 45% Kendrick apical hypokinesis Atypical septal motion Mild mitral and dilated regurgitation Treatment: 05/12 Lopressor 25mg PO BID In your professional opinion, can you please clarify the [acuity and type] of CHF if known? [ ] Chronic Systolic Heart Failure (reduced EF) [ ] Chronic Diastolic Heart Failure (preserved EF) [ ] Chronic Systolic & Diastolic Heart Failure [ ] Other, please specify [ ] Unable to determine (Template Last Revised: December 2020) no CHF MTDD
--- NOTE | 2022-05-14 18:38 | EEG ---
ELECTROENCEPHALOGRAM REPORT DATE OF SERVICE: 05/14/2022 PREAMBLE: This is an 86-year-old male with altered mental status. This study is performed to evaluate for any epileptiform activity. EEG FINDINGS: This is a 21-channel digital EEG recorded with video component, utilizing 10/20 international system with referential and bipolar montages. Background consists of moderately well-developed and -regulated mixed frequencies of some fast frequency beta, intermixed with some alpha and some theta activity in 6 to 7 hertz range. Background is posterior-dominant and reactive to eye opening and closing. Some drowsiness was seen with appearance of bilaterally symmetric theta frequency rhythm. Deeper stages of sleep were not clearly seen. Photic stimulation was not performed. No definitive focal or generalized epileptiform activity was seen. IMPRESSION: This is a mildly abnormal EEG because of slight background disorganization with a mix of fast and slow frequency activity, suggestive of nonspecific generalized cerebral dysfunction as can be seen with mild encephalopathy or medication effect. No epileptiform activity was seen. MMODL / IJN: [id number] /
--- NOTE | 2022-05-14 19:24 | P.PN ---
Subjective This is a pleasant 86 years old female with past medical history of atrial fibrillation on Coumadin Respiratory documents (Son states patient cant hear out of his left ear. Son states that patient is hallucinating) However when I saw the patient he was lying in bed comfortable, he is very hard of hearing and I have to come the case with him through writing us questions very appropriately . He knows he is in the hospital. He denies chest pain or dyspnea. He denies nausea vomiting or abdominal pain. He says that sometimes he has increased frequency of urination But no dizziness or headache or weakness or numbness. States he can walk. He denies smoking, illicit drugs. He says occasionally he drinks wine. He denies taking a blood thinner at home and he denies seeing any delphi developer When I told him you have a heart problem he got surprised No family member at bedside Vitas looks stable and patient is afebrile Labs reviewed showed an unremarkable CBC, INR, BMP and liver enzymes. Hemoglobin slightly low at 11.9. Creatinine normal 0.8. Troponin elevated 6.0 on 5.9. EKG showing atrial paced rhythm CT of the brain: No acute intracranial abnormality. Encephalomalacia in both temporal lobes In the emergency room patient received normal saline Application Integration Architect and psychiatric were consulted 05/13/2022 yesterday patient was more agitated overnight, CT of the brain showing no acute hemorrhage, today daughter at bedside to that one month ago he was normally functional before he started getting more confusion lately over the last few days and weeks. Once family was requesting for the neurologist evaluation. Other than that he is hemodynamically stable, laps looks stable. Heparin drip was stopped and patient started on Plavix and continued on small dose of lisinopril, aspirin and statin. CODE STATUS I changed to DO NOT RESUSCITATE today per family 05/14/2022 Patient looks like more awake and calm today and he answered questions appropriately to me and he follows commands. He remains on aspirin and Plavix for his non-STEMI, which is a stable now and cleared by delphi developer for discharge. No symptoms of chest pain or dyspnea. Neurologist evaluated the patient for dementia and recommended workup like B12, folate, Lyme serology and syphilis antibodies which are pending. EKG showing mild encephalopathy with no epileptiform discharge. Also patient may benefit from neurological evaluation as an outpatient patient and evaluation for normal pressure hydrocephalus per neurologist. Physical therapy recommended subacute rehab Objective - Vital Signs Vital signs: Vital Signs Temp 97.7 F 05/14/22 08:15 Pulse 62 05/14/22 08:15 Resp 16 05/14/22 08:15 BP 118/67 05/14/22 08:15 Pulse Ox 99 05/14/22 08:15 FiO2 Intake & Output 05/13/22 05/14/22 05/14/22 18:59 06:59 18:59 Intake Total 225.927 240 Output Total 300 200 Balance -74.073 -200 240 Intake: Intake, IV Titration 225.927 Amount Heparin Sod,Pork in 0.45% 225.927 NaCl 25,000 unit In 0.45 % NaCl 1 250ml.bag @ 12 UNITS/KG/HR 9.253 mls/hr IV .Q24H NAYA Rx#: [id number] Oral 240 Output: Urine 300 200 Other: Voiding Method Urinal # Voids 1 4 - Exam -GENERAL: The patient is alert and awake, calm, hard of hearing not in any acute distress. Well developed, well nourished. HEENT: Pupils are round and equally reacting to light. EOMI. No scleral icterus. No conjunctival pallor. Normocephalic, atraumatic. No pharyngeal erythema. No thyromegaly. CARDIOVASCULAR: S1 and S2 present. No murmurs, rubs, or gallops. PULMONARY: Chest is clear to auscultation, no wheezing or crackles. ABDOMEN: Soft, nontender, nondistended, normoactive bowel sounds. No palpable organomegaly. MUSCULOSKELETAL: No joint swelling or deformity. EXTREMITIES: No cyanosis, clubbing, or pedal edema. NEUROLOGICAL: Gross neurological examination did not reveal any focal deficits. SKIN: No rashes. no petechiae. - Labs CBC & Chem 7: 05/14/22 08:59 05/14/22 08:59 Labs: Abnormal Lab Results - Last 24 Hours (Table) 05/14/22 05/14/22 Range/Units 08:59 08:59 RBC 4.11 L (4.30-5.90) m/uL Hgb 11.9 L (13.0-17.5) gm/dL Hct 37.9 L (39.0-53.0) % Lymphocytes # 0.9 L (1.0-4.8) k/uL BUN 22 H (9-20) mg/dL Glucose 118 H (74-99) mg/dL Assessment and Plan Assessment: Elevated troponin, patient is asymptomatic. rule out cardiac causes AMS, most likely metabolic encephalopathy, with possible underlying dementia Severe hearing difficulty Questionable history Chronic atrial fibrillation on Coumadin with subtherapeutic INR on admission. encephalomalacia in both temporal lobes on computed tomography scan of the brain Plan: This is a pleasant 86 years old male who presents with non-STEMI Continue with aspirin and Plavix per delphi developer Neurology consult Labs and medication were reviewed.. Continue same treatment. Continue with symptomatic treatment. Resume home medication. Monitor lytes and vitals. DVT and GI prophylaxis. Further recommendations depends on the clinical course of the patient DVT prophylaxis: Subcutaneous heparin GI Prophylaxis: Pepcid Prognosis is guarded
[2022-05-14] MEDS ORDERED: DONEPEZIL 5 MG TAB PO SCH (21:00)
[2022-05-14] MEDS: QUEtiapine 25 MG TAB PO SCH (21:43)
[2022-05-14 23:38] VITALS: PULSE 60
[2022-05-15] MEDS: SODIUM CHLORIDE 0.9% 1,000 ML IV SCH (03:46)
[2022-05-15] MEDS: ASPIRIN 81 MG PO SCH (09:04)
[2022-05-15] MEDS: CLOPIDOGREL 75 MG TAB PO SCH (09:04)
[2022-05-15] MEDS: METOPROLOL TARTRATE 25 MG TAB PO SCH (09:04)
[2022-05-15] MEDS: FAMOTIDINE 20 MG TAB PO SCH (09:04)
[2022-05-15] MEDS: ATORVASTATIN 40 MG TAB PO SCH (09:04)
--- NOTE | 2022-05-15 10:35 | P.DS ---
Providers Date of admission: 05/12/22 01:12 Attending physician: Eliezer Paniagua Consults: 05/12/22 01:12 Consult Physician Routine Consulting Provider: Rico Jean Baptiste Consult Reason/Comments: stress Do you want consulting provider notified?: Already Contacted Consult Physician Routine Consulting Provider: Josep Sheridan Consult Reason/Comments: elevTrop Do you want consulting provider notified?: Yes 05/13/22 12:44 Consult Physician Urgent Consulting Provider: Rodriguez Haq Consult Reason/Comments: confusion Do you want consulting provider notified?: Yes Primary care physician: Gume Duran Sharon [facility]ton Hospital Course: Diagnoses Non-STEMI AMS, most likely metabolic encephalopathy, on the top of underlying dementia. 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 Given his heart disease there is also possibility of elements of vascular dementia Severe hearing difficulty history of paroxysmal atrial fibrillationnot on anticoagulation for bleeding riskR on admission. encephalomalacia in both temporal lobes on computed tomography scan of the brain Low normal vitamin B12 level, been replaced Hospital course This is a pleasant 86 years old female with past medical history of atrial fibrillation, patient presents because of altered mental status. Patient was found to have non-STEMI, his been evaluated by harvester operator secondary to elevated troponin and his been treated with aspirin and Plavix, metoprolol and lisinopril as well as Lipitor. Family did not want any aggressive or invasive procedure since harvester operator recommended to treat him medically. Also patient with periods of confusion most likely has underlying dementia with superimposed metabolic encephalopathy given his multiple medical problems. Treatment, pallidum antibodies are nonreactive. Sheehan more than 20. Vitamin B12 296, vitamin B12 replacement therapy was started. Please be advised that Lyme antibody total IgG/IgM are still pending: please follow-up the results, Also he has an appointment with his PCP Dr. Gume Linder on 05/19 and also he will follow-up this test, case was already discussed with Patient mentation is back to baseline. Patient denies any other symptoms today, no chest pain or dyspnea. No abdominal pain or vomiting. No urinary complaints. Tolerates diet well. He's been able by psychiatrist and placed on small dose of Seroquel at bedtime. Patient was cleared for discharge by all consultants including harvester operator, psychiatrist and neurologist. Physical therapy recommended to rehab and family opted to pursue with this plan. Problems and management plan were discussed with the patient and family and he verbalized understanding and acceptance Patient was found stable and can be discharge to ECF in guarded prognosis however he needs follow-up as an outpatient. Patient was instructed to follow up with PCP within one week and patient agrees Patient will need to follow up with his PCP Dr. Dunaway as above Physical exam -Gen: patient is awake and alert, hard of hearing, agitated at times, most of the times., no distress CVS: S1-S2, RRR, no murmur Lungs: B/L CTA, no wheezing Abdomen: soft, no distention, no tenderness, positive bowel sounds Extremity: no leg edema or induration Time spent more than 35 minutes Patient Condition at Discharge: Fair Plan - Discharge Summary New Discharge Prescriptions: New Donepezil [Aricept] 5 mg PO HS #30 tab Aspirin 81 mg PO DAILY #30 tab Atorvastatin [Lipitor] 40 mg PO DAILY #30 tab Metoprolol Tartrate [Lopressor] 25 mg PO BID #60 tab Famotidine [Pepcid] 20 mg PO DAILY #60 tab Clopidogrel [Plavix] 75 mg PO DAILY #30 tab QUEtiapine [SEROquel] 12.5 mg PO HS #15 tab lisinopriL [Zestril] 2.5 mg PO DAILY #30 tab Discharge Medication List Aspirin 81 mg PO DAILY #30 tab 05/14/22 [Rx] Atorvastatin [Lipitor] 40 mg PO DAILY #30 tab 05/14/22 [Rx] Clopidogrel [Plavix] 75 mg PO DAILY #30 tab 05/14/22 [Rx] Donepezil [Aricept] 5 mg PO HS #30 tab 05/14/22 [Rx] Famotidine [Pepcid] 20 mg PO DAILY #60 tab 05/14/22 [Rx] Metoprolol Tartrate [Lopressor] 25 mg PO BID #60 tab 05/14/22 [Rx] QUEtiapine [SEROquel] 12.5 mg PO HS #15 tab 05/14/22 [Rx] lisinopriL [Zestril] 2.5 mg PO DAILY #30 tab 05/14/22 [Rx] Follow up Appointment(s)/Referral(s): Josep Sheridan MD [STAFF PHYSICIAN] - 2 Weeks Gume Herrera MD [Primary Care Provider] - 05/19/22 12:00 pm ()
[2022-05-15 11:10] VITALS: BP 124/71; RESP 18; TEMP 98
[2022-05-15 12:06] LABS: Lyme IgG/IgM 0.02 Index
[2022-05-16] MEDS ORDERED: CYANOCOBALAMIN 500 MCG TAB PO SCH (09:00)
== END 2022-05-15 15:20 | DRG 280 ==
LOC: EC 18:00 → 3SCARD 05-12 01:12
PROVIDERS: ADMIT Hospitalist; ATTEND Hospitalist
DX: I21.4 Non-ST elevation (NSTEMI) myocardial infarction (principal); G93.41 Metabolic encephalopathy; G91.9 Hydrocephalus, unspecified; F03.90 Unspecified dementia, unspecified severity, without behavioral disturbance, psychotic disturbance, mood disturbance, and anxiety; H91.90 Unspecified hearing loss, unspecified ear; E78.5 Hyperlipidemia, unspecified; M19.90 Unspecified osteoarthritis, unspecified site; G93.89 Other specified disorders of brain; I25.5 Ischemic cardiomyopathy; I48.0 Paroxysmal atrial fibrillation; Z95.0 Presence of cardiac pacemaker; Z66 Do not resuscitate; Z79.01 Long term (current) use of anticoagulants; Z79.02 Long term (current) use of antithrombotics/antiplatelets; Z79.82 Long term (current) use of aspirin; Z85.46 Personal history of malignant neoplasm of prostate; Z91.81 History of falling
CPT/HCPCS: 36415; 70450; 80048; 80053; 80061; 81003; 82140; 82607; 82746; 83605; 83735; 84100; 84443; 84484; 85025; 85610; 85730; 86618; 86780; 93005; 93306; 95816; 96361; 96365; 96366; 99285

== ENCOUNTER 2023-05-01 09:41 | Inpatient (IN) | payer BC, MEDICARE ==
[2023-05-01] MEDS ORDERED: DIPH,PERTUS(ACELL)TETVAC-LF 0.5 ML VIAL IM ONE (10:16)
[2023-05-01] MEDS ORDERED: SODIUM CHLORIDE 0.9% 1,000 ML IV ONE (10:20)
--- NOTE | 2023-05-01 10:20 | ED ---
General Adult HPI - General Chief complaint: Fall Stated complaint: fall Time Seen by Provider: 05/01/23 09:50 Source: patient, RN notes reviewed, old records reviewed Mode of arrival: EMS Limitations: physical limitation - History of Present Illness Initial comments: This is a 87-year-old male who presents emergency department after having been found on the floor this morning by his . Patient was drinking last night quite heavily according to the daughter and there was some report that maybe he aspirated some wine and food last night when she arrived the patient was not in any distress and was awake and alert but he was still spitting up food out and had some food in his nose would appear that she was correct that he had aspirated. This morning when he was found on the floor he had a laceration above the left eyebrow and he had no other complaints though he is very hard of hearing since difficult get an accurate history patient is on Plavix. Patient denies chest pain back pain or difficulty breathing. Patient's abdominal pain patient denies any extremity pain. - Related Data Previous Rx's Medication Instructions Recorded Aspirin 81 mg PO DAILY #30 tab 05/14/22 Atorvastatin [Lipitor] 40 mg PO DAILY #30 tab 05/14/22 Clopidogrel [Plavix] 75 mg PO DAILY #30 tab 05/14/22 Donepezil [Aricept] 5 mg PO HS #30 tab 05/14/22 Famotidine [Pepcid] 20 mg PO DAILY #60 tab 05/14/22 Metoprolol Tartrate [Lopressor] 25 mg PO BID #60 tab 05/14/22 QUEtiapine [SEROquel] 12.5 mg PO HS #15 tab 05/14/22 lisinopriL [Zestril] 2.5 mg PO DAILY #30 tab 05/14/22 Cyanocobalamin [Vitamin B-12] 1,000 mcg PO DAILY tab 05/15/22 Allergies Allergy/AdvReac Type Severity Reaction Status Date / Time No Known Allergies Allergy Verified 05/12/22 09:00 Review of Systems ROS Statement: Those systems with pertinent positive or pertinent negative responses have been documented in the HPI. ROS Other: All systems not noted in ROS Statement are negative. Past Medical History Past Medical History: Atrial Fibrillation History of Any Multi-Drug Resistant Organisms: None Reported Past Surgical History: No Surgical Hx Reported Past Anesthesia/Blood Transfusion Reactions: No Reported Reaction, Unable to Obtain Type of Cardiac Device: Unknown Device Placement Date:: 20 years ago, son says battery was just changed Past Psychological History: No Psychological Hx Reported Smoking Status: Never smoker Past Alcohol Use History: Daily Past Drug Use History: None Reported General Exam - General Exam Comments Initial Comments: GENERAL: Patient is well-developed and well-nourished. Patient is nontoxic and well- hydrated and is in mild distress. ENT: Neck is soft and supple. No significant lymphadenopathy is noted. Oropharynx is clear. Moist mucous membranes. Neck has full range of motion without eliciting any pain. EYES: The sclera were anicteric and conjunctiva were pink and moist. Extraocular movements were intact and pupils were equal round and reactive to light. Eyelids were unremarkable. PULMONARY: Unlabored respirations. Good breath sounds bilaterally. No audible rales rhonchi or wheezing was noted. CARDIOVASCULAR: There is a regular rate and rhythm without any murmurs gallops or rubs. ABDOMEN: Soft and nontender with normal bowel sounds. SKIN: 1 cm laceration to the right eyebrow. NEUROLOGIC: Patient is alert and oriented x3. Cranial nerves II through XII are grossly intact. Motor and sensory are also intact. Normal speech, volume and content. Symmetrical smile. MUSCULOSKELETAL: Normal extremities with adequate strength and full range of motion. No lower extremity swelling or edema. No calf tenderness. LYMPHATICS: No significant lymphadenopathy is noted PSYCHIATRIC: Normal psychiatric evaluation. Limitations: physical limitation Course Vital Signs 05/01/23 05/01/23 05/01/23 09:49 10:02 13:17 Temperature 97.9 F Pulse Rate 80 96 81 Respiratory 16 20 16 Rate Blood Pressure 159/94 143/81 141/78 O2 Sat by Pulse 98 98 98 Oximetry 05/01/23 14:36 Temperature Pulse Rate 69 Respiratory 16 Rate Blood Pressure 146/82 O2 Sat by Pulse 97 Oximetry Procedures - Laceration Laceration #1 Consent Obtained: verbal consent Indication: laceration Site: other (Forehead) Description: linear Depth: simple, single layer Type of Sutures: other (Exofin) Technique: simple, interrupted Patient Tolerated Procedure: well Medical Decision Making - Medical Decision Making EKG was interpreted by myself shows atrial fibrillation at 89 bpm QRS is 94 QT interval 370 QTC is 418. Patient's EKG shows no ST segment elevation or depression. Was pt. sent in by a medical professional or institution (JEANCARLOS Husain, LAND ACQUISITION MANAGER, urgent care, hospital, or [facility]...) When possible be specific @ -No Did you speak to anyone other than the patient for history (EMS, parent, family, police, friend...)? What history was obtained from this source @ -Daughter gave the history Did you review nursing and triage notes (agree or disagree)? Why? @ -I reviewed and agree with nursing and triage notes Were old charts reviewed (outside hosp., previous admission, EMS record, old EK G, old radiological studies, urgent care reports/EKG's, [facility] records)? Report findings @ -I reviewed prior charts from prior lab work on this patient Differential Diagnosis (chest pain, altered mental status, abdominal pain women, abdominal pain men, vaginal bleeding, weakness, fever, dyspnea, syncope, headache, dizziness, GI bleed, back pain, seizure, CVA, palpatations, mental health, musculoskeletal)? @ -Differential Dyspnea: Coronary syndrome, arrhythmia, tamponade, asthma, COPD, pulmonary embolism, pneumonia, pneumothorax, pulmonary effusion, anaphylaxis, diabetic ketoacidosis, flailed chest, pulmonary contusion, diaphragmatic rupture, anemia, neuromuscular, this is not meant to be an all-inclusive list. EKG interpreted by me (3pts min.). @ -As above X-rays interpreted by me (1pt min.). @ -X-ray shows pulmonary edema cannot rule out aspiration CT interpreted by me (1pt min.). @ -None done U/S interpreted by me (1pt. min.). @ -None done What testing was considered but not performed or refused? (CT, X-rays, U/S, labs)? Why? @ -None What meds were considered but not given or refused? Why? @ -None Did you discuss the management of the patient with other professionals (professionals i.e. JEANCARLOS Husain, LAND ACQUISITION MANAGER, lab, RT, psych nurse, social worker health services, software development leader, teacher, airplane first officer, housing case manager)? Give summary @ -I spoke with [facility] hospitalist and they've agreed to admit the patient Was smoking cessation discussed for >3mins.? @ -No Was critical care preformed (if so, how long)? @ -35 minutes Were there social determinants of health that impacted care today? How? (Homelessness, low income, unemployed, alcoholism, drug addiction, transportation, low edu. Level, literacy, decrease access to med. care, group home, rehab)? @ -No Was there de-escalation of care discussed even if they declined (Discuss DNR or withdrawal of care, Hospice)? DNR status @ -No What co-morbidities impacted this encounter? (DM, HTN, Smoking, COPD, CAD, Cancer, CVA, ARF, Chemo, Hep., AIDS, mental health diagnosis, sleep apnea, morbid obesity)? @ -None Was patient admitted / discharged? Hospital course, mention meds given and route, prescriptions, significant lab abnormalities, going to OR and other pertinent info. @ -Patient according to the daughter had food coming out of his nose and he was coughing and gagging for quite a while patient is thought to have aspiration pneumonia x-ray shows increased vasculature and difficult to rule out aspiration so patient was started on antibiotics. Patient also small laceration to the lateral aspect of the forehead on the right and that was repaired with Exofin. Patient also had an elevated troponin however less than the patient and her troponin was much more significantly elevated and the daughter states that they never found anything and he is not complaining of any chest pain at any time. EKG does not show any abnormality. Undiagnosed new problem with uncertain prognosis? @ -No Drug Therapy requiring intensive monitoring for toxicity (Heparin, Nitro, Insulin, Cardizem)? @ -No Were any procedures done? @ -No Diagnosis/symptom? @ -Elevated troponin Acute, or Chronic, or Acute on Chronic? @ -Acute Uncomplicated (without systemic symptoms) or Complicated (systemic symptoms)? @ -Complicated Side effects of treatment? @ -No Exacerbation, Progression, or Severe Exacerbation? @ -No Poses a threat to life or bodily function? How? (Chest pain, USA, MS, pneumonia, PE, COPD, DKA, ARF, appy, cholecystitis, CVA, Diverticulitis, Homicidal, Suicidal, threat to staff... and all critical care pts) @ -Yes this could lead MS could lead to end organ dysfunction Diagnosis/symptom? @ -Forehead laceration Acute, or Chronic, or Acute on Chronic? @ -Acute Uncomplicated (without systemic symptoms) or Complicated (systemic symptoms)? @ -Uncomplicated Side effects of treatment? @ -none Exacerbation, Progression, or Severe Exacerbation] @ -no Poses a threat to life or bodily function? @ -no Diagnosis/symptom? @ -Aspiration pneumonia Acute, or Chronic, or Acute on Chronic? @ -Acute Uncomplicated (without systemic symptoms) or Complicated (systemic symptoms)? @ -Complicated Side effects of treatment? @ -none Exacerbation, Progression, or Severe Exacerbation] @ -no Poses a threat to life or bodily function? @ -Yes this could lead to sepsis and end organ dysfunction - Lab Data Result diagrams: 05/01/23 10:09 05/01/23 10:12 Lab Results 05/01/23 05/01/23 05/01/23 Range/Units 10:09 10:09 10:12 WBC 9.3 (3.8-10.6) k/uL RBC 3.84 L (4.30-5.90) m/uL Hgb 11.2 L (13.0-17.5) gm/dL Hct 34.2 L (39.0-53.0) % MCV 89.2 (80.0-100.0) fL MCH 29.1 (25.0-35.0) pg MCHC 32.6 (31.0-37.0) g/dL RDW 14.3 (11.5-15.5) % Plt Count 150 (150-450) k/uL MPV 8.2 Neutrophils % 89 % Lymphocytes % 5 % Monocytes % 5 % Eosinophils % 0 % Basophils % 0 % Neutrophils # 8.3 H (1.3-7.7) k/uL Lymphocytes # 0.5 L (1.0-4.8) k/uL Monocytes # 0.5 (0-1.0) k/uL Eosinophils # 0.0 (0-0.7) k/uL Basophils # 0.0 (0-0.2) k/uL PT 10.8 (9.0-12.0) sec INR 1.0 (<1.2) APTT 22.5 (22.0-30.0) sec Sodium 139 (137-145) mmol/L Potassium 4.4 (3.5-5.1) mmol/L Chloride 105 (98-107) mmol/L Carbon Dioxide 23 (22-30) mmol/L Anion Gap 11 mmol/L BUN 23 H (9-20) mg/dL Creatinine 0.84 (0.66-1.25) mg/dL Est GFR (CKD-EPI)AfAm >90 (>60 ml/min/1.73 sqM) Est GFR (CKD-EPI)NonAf 79 (>60 ml/min/1.73 sqM) Glucose 114 H (74-99) mg/dL Calcium 9.2 (8.4-10.2) mg/dL Magnesium (1.6-2.3) mg/dL Total Bilirubin 1.5 H (0.2-1.3) mg/dL AST 43 (17-59) U/L ALT 27 (4-49) U/L Alkaline Phosphatase 73 (38-126) U/L Troponin I (0.000-0.034) ng/mL NT-Pro-B Natriuret Pep pg/mL Total Protein 7.2 (6.3-8.2) g/dL Albumin 4.5 (3.5-5.0) g/dL Serum Alcohol mg/dL 05/01/23 05/01/23 05/01/23 Range/Units 10:17 13:00 13:17 WBC (3.8-10.6) k/uL RBC (4.30-5.90) m/uL Hgb (13.0-17.5) gm/dL Hct (39.0-53.0) % MCV (80.0-100.0) fL MCH (25.0-35.0) pg MCHC (31.0-37.0) g/dL RDW (11.5-15.5) % Plt Count (150-450) k/uL MPV Neutrophils % % Lymphocytes % % Monocytes % % Eosinophils % % Basophils % % Neutrophils # (1.3-7.7) k/uL Lymphocytes # (1.0-4.8) k/uL Monocytes # (0-1.0) k/uL Eosinophils # (0-0.7) k/uL Basophils # (0-0.2) k/uL PT (9.0-12.0) sec INR (<1.2) APTT (22.0-30.0) sec Sodium (137-145) mmol/L Potassium (3.5-5.1) mmol/L Chloride (98-107) mmol/L Carbon Dioxide (22-30) mmol/L Anion Gap mmol/L BUN (9-20) mg/dL Creatinine (0.66-1.25) mg/dL Est GFR (CKD-EPI)AfAm (>60 ml/min/1.73 sqM) Est GFR (CKD-EPI)NonAf (>60 ml/min/1.73 sqM) Glucose (74-99) mg/dL Calcium (8.4-10.2) mg/dL Magnesium 1.9 (1.6-2.3) mg/dL Total Bilirubin (0.2-1.3) mg/dL AST (17-59) U/L ALT (4-49) U/L Alkaline Phosphatase (38-126) U/L Troponin I 0.131 H* (0.000-0.034) ng/mL NT-Pro-B Natriuret Pep 3540 pg/mL Total Protein (6.3-8.2) g/dL Albumin (3.5-5.0) g/dL Serum Alcohol <10 mg/dL Critical Care Time Critical Care Time: Yes Total Critical Care Time: 35 Disposition Clinical Impression: Aspiration pneumonia, Elevated troponin, Blunt head trauma, Forehead laceration Disposition: ADMITTED IP TO THIS [facility] Referrals: Nonstaff,Physician [REFERRING] - 1-2 days Time of Disposition: 14:54
[2023-05-01 10:28] LABS: Basophils % (A) 0 %; Eosinophils % (A) 0 %; HCT 34.2 % (39.0-53.0); HGB 11.2 gm/dL (13.0-17.5); Lymphocytes # (A) 0.5 k/uL (1.0-4.8); Lymphocytes % (A) 5 %; MCH 29.1 pg (25.0-35.0); MCHC 32.6 g/dL (31.0-37.0); MCV 89.2 fL (80.0-100.0); Mean Platelet Volume 8.2; Monocytes # (A) 0.5 k/uL (0-1.0); Monocytes % (A) 5 %; Neutrophils # (A) 8.3 k/uL (1.3-7.7); Neutrophils % (A) 89 %; Platelet Count 150 k/uL (150-450); RBC 3.84 m/uL (4.30-5.90); RDW 14.3 % (11.5-15.5); WBC 9.3 k/uL (3.8-10.6)
[2023-05-01 10:29] LABS: ALT 27 U/L (4-49); AST 43 U/L (17-59); African American GFR (CKD) >90 (>60 ml/min/1.73 sqM); Albumin 4.5 g/dL (3.5-5.0); Alkaline Phosphatase 73 U/L (38-126); Anion Gap 11 mmol/L; Blood Urea Nitrogen 23 mg/dL (9-20); Calcium 9.2 mg/dL (8.4-10.2); Carbon Dioxide 23 mmol/L (22-30); Chloride 105 mmol/L (98-107); Glucose 114 mg/dL (74-99); Non-African American GFR(CKD) 79 (>60 ml/min/1.73 sqM); Potassium 4.4 mmol/L (3.5-5.1); Sodium 139 mmol/L (137-145); Total Bilirubin 1.5 mg/dL (0.2-1.3); Total Protein 7.2 g/dL (6.3-8.2)
[2023-05-01 10:32] LABS: Partial Thromboplastin Time 22.5 sec (22.0-30.0); Prothrombin Time 10.8 sec (9.0-12.0)
--- NOTE | 2023-05-01 11:21 | XR ---
EXAMINATION TYPE: XR chest 2V DATE OF EXAM: 05/01/2023 10:48 AM COMPARISON: Chest radiographs from 05/03/2016 TECHNIQUE: XR chest 2V Frontal and lateral views of the chest. CLINICAL INDICATION:Male, 87 years old with history of fall loc possible aspiration; FINDINGS: Lungs/Pleura: There is no evidence of pleural effusion, focal consolidation, or pneumothorax. Pulmonary vascularity: Mild vascular congestion. Heart/mediastinum: Cardiomediastinal silhouette is enlarged and stable. Two lead cardiac conduction d evice overlying the left hemithorax with lead tips projecting over the right ventricle and right atri um. Musculoskeletal: Degenerative changes of the shoulder joints. IMPRESSION: Cardiomegaly and mild pulmonary vascular congestion. Correlate with BNP for congestive heart failure.
--- NOTE | 2023-05-01 11:39 | CT ---
EXAMINATION TYPE: CT brain cspine wo con, CT facial bones wo con CT DLP: 988 mGycm, Automated exposure control for dose reduction was used. DATE OF EXAM: 05/01/2023 10:55 AM COMPARISON: 05/11/2022 CT, 05/03/2016. CLINICAL INDICATION:Male, 87 years old with history of fall loc hematoma lac to right orbit; TECHNIQUE: Brain: Multiple axial CT images of the brain were obtained without IV contrast. Cspine: Axial CT images from the skull base to the inferior aspect of T2 we obtained without intraven ous contrast. Coronal and sagittal reformatted images were also reviewed. FINDINGS: Brain: Extra-axial spaces: No abnormal extra-axial fluid collections. Ventricular system: Dilatation in proportion to cerebral atrophy. Cerebral parenchyma: Cerebral atrophy. No acute intraparenchymal hemorrhage or mass effect. The hazel -white junction is well differentiated. Scattered hypoattenuating areas are seen within the white mat ter. Cerebellum: Unremarkable. Mass effect: No evidence of midline shift. Intracranial vasculature: Atherosclerotic calcifications of the intracranial vessels. Soft tissues: Normal. Calvarium/osseous structures: No depressed skull fracture. Paranasal sinuses and mastoid air cells: Clear. Visualized orbits: Bilateral aphakia Cervical spine: Fracture: None. Osseous structures: Multilevel degenerative disc disease changes with endplate spurring and disc oste ophyte complex's. Vertebral alignment: Within normal limits. Spinal canal/Neural Foramina: Disc osteophyte complexes at C5-C6 and C6-C7 with at least mild spinal canal stenosis. Facet joint uncovertebral joint arthropathy scattered throughout the cervical spine w ith varying degrees of neural foraminal stenosis. Neck soft tissues: Prevertebral soft tissues are within normal limits. Other: The airway is patent. Right upper lung calcified granuloma. Mild thickening of interlobular se tug captain. Left upper lung calcified granuloma/pleural scarring. Cardiac conduction leads partially visuali zed. Facial: No evidence for fracture or dislocation. Supraorbital pneumatization. There is mild mucosal thickenin g. No evidence in the maxillary sinuses. Ostiomeatal units are partially obstructed due to mucosal th ickening. IMPRESSION: 1. No acute intracranial process. 2. Cerebral atrophy and nonspecific white matter changes. 3. No evidence of facial bone fracture. 4. No evidence of cervical spine fracture. 5. Moderate to severe multilevel degenerative disc disease.
[2023-05-01 13:41] LABS: Alcohol <10 mg/dL; Magnesium 1.9 mg/dL (1.6-2.3)
[2023-05-01] MEDS ORDERED: cefTRIAXone IN SWFI 1,000 MG/10 ML SYRINGE IVP STA (14:21)
[2023-05-01] MEDS ORDERED: TOPICAL SKIN ADHESIVE 1 EACH AMP TOPICAL ONE (14:32)
[2023-05-01] MEDS ORDERED: FUROSEMIDE 10 MG/ML 2 ML VIAL IV ONE (15:02)
[2023-05-01] MEDS ORDERED: NITROGLYCERIN SL TABS 0.4 MG TAB SUBLINGUAL PRN (15:03)
[2023-05-01] MEDS ORDERED: AZITHROMYCIN 500 MG in SODIUM CHLORIDE 0.9% 250 ML IVPB STA (15:05)
[2023-05-01] MEDS ORDERED: PNEUMONIA PROTOCOL UTILIZED 1 EACH MISC PO PRN (15:05)
[2023-05-01] MEDS: metroNIDAZOLE-NS PMX 500 MG in SALINE 1 100ML.BAG IVPB SCH (17:43)
[2023-05-01] MEDS: HEPARIN SODIUM,PORCINE/PF 5,000 UNIT/0.5 ML SYRINGE SQ SCH (21:54)
[2023-05-02] MEDS: metroNIDAZOLE-NS PMX 500 MG in SALINE 1 100ML.BAG IVPB SCH ×4 (00:43→23:11)
--- NOTE | 2023-05-02 00:59 | P.HPIM ---
History of Present Illness H&P Date: 05/01/23 Chief Complaint: Fall Patient is a 87-year-old male with a known history of non-ST elevated AK opted for medical management as per family in 2021, dementia with behavioral dis turbances, severe hearing disorder, paroxysmal atrial fibrillation not on anticoagulation due to fall risk was brought to hospital by his family as he was found on the floor this morning by his . Patient was drinking last night quite heavily and according to his daughter there was concern for choking and aspirated some wine and food last night. Patient was found to be not in any distress but he was still spitting of food out and has some holding his nose as well. Patient was found on the floor and also had a laceration of the left eyebrow and also ecchymosis in the right eye. Patient is on aspirin and Plavix at home. Patient is very hard of hearing. Denies any complaints of chest pain or shortness of breath. No complaints of nausea or vomiting. Denies any abdominal pain. EKG showed atrial fibrillation with heart rate 89 Chest x-ray showed cardiomegaly and mild pulmonary vascular congestion. Correlate with BNP for congestive heart failure. CT of the face showed no acute intracranial process. CT will atrophy and nonspecific white matter changes. No evidence of facial bone fracture. No evidence of cervical spine fracture. Moderate to severe multilevel degenerative disc disease. Laboratory data showed WBC 9.3 hemoglobin 11.2 and platelets 150 Sodium 139 potassium 4.4 chloride 105 bicarb is 23 BUN 23 and creatinine 0.84 and blood sugar is 114 total bilirubin 1.5 liver enzymes are not elevated. proBNP is 3540 and troponin 0.131, lactic acid 3.3 and serum alcohol level is less than 10. Patient has prior echocardiogram and April 2022 showed mild LV systolic dysfunc tion with ejection fraction 45%. Anteroapical hypokinesis. Atypical septal motion. Mild mitral and tricuspid regurgitation. Review of Systems ROS unobtainable: due to mental status Past Medical History Past Medical History: Atrial Fibrillation History of Any Multi-Drug Resistant Organisms: None Reported Past Surgical History: No Surgical Hx Reported Past Anesthesia/Blood Transfusion Reactions: No Reported Reaction, Unable to Obtain Type of Cardiac Device: Unknown Device Placement Date:: 20 years ago, son says battery was just changed Past Psychological History: No Psychological Hx Reported Smoking Status: Never smoker Past Alcohol Use History: Daily Past Drug Use History: None Reported - Past Family History Brother(s) Additional Family Medical History / Comment(s): bradycardia Medications and Allergies Home Medications Medication Instructions Recorded Confirmed Type Atorvastatin [Lipitor] 40 mg PO DAILY #30 tab 05/14/22 05/01/23 Rx Clopidogrel [Plavix] 75 mg PO DAILY #30 tab 05/14/22 05/01/23 Rx lisinopriL [Zestril] 2.5 mg PO DAILY #30 tab 05/14/22 05/01/23 Rx Aspirin EC [Ecotrin Low Dose] 81 mg PO DAILY 05/01/23 05/01/23 History Cyanocobalamin [Vitamin B-12] 500 mcg PO DAILY 05/01/23 05/01/23 History Metoprolol Tartrate [Lopressor] 25 mg PO DAILY 05/01/23 05/01/23 History Allergies Allergy/AdvReac Type Severity Reaction Status Date / Time No Known Allergies Allergy Verified 05/01/23 15:35 Physical Exam Vitals: Vital Signs Temp Pulse Resp BP Pulse Ox 05/01/23 14:36 69 16 146/82 97 05/01/23 13:17 81 16 141/78 98 05/01/23 10:02 96 20 143/81 98 05/01/23 09:49 97.9 F 80 16 159/94 98 Intake and Output 05/01/23 05/01/23 05/01/23 06:59 14:59 22:59 Other: Weight 54.431 kg PHYSICAL EXAMINATION: Patient is lying in the bed comfortably, no acute distress, awake alert patient is hard of hearing... HEENT: Normocephalic. Neck is supple. Pupils reactive. Nostrils with dried blood. Oral cavity is moist. Laceration on the rt forehead and dried blood. Neck reveals no JVD, carotid bruits, or thyromegaly. CHEST EXAMINATION: Trachea is central. Symmetrical expansion. Lung sloan clear to auscultation and percussion. CARDIAC: Normal S1, S2 with no gallops. No murmurs. Regular rate rhythm. ABDOMEN: Soft. Bowel sounds present. Nontender. No organomegaly. No abdominal bruits. Extremities: reveal no edema. No clubbing or cyanosis Neurologically awake, alert. Underlying dementia. Hard of hearing. No gross focal deficits noted Skin: No rash or skin lesions. As above. Psychiatric: Coperative. Could not be assessed completely, Musculoskeletal: No joint swelling or deformity. Results CBC & Chem 7: 05/02/23 06:47 05/02/23 06:47 Labs: Abnormal Lab Results - Last 24 Hours (Table) 05/01/23 05/01/23 05/01/23 Range/Units 10:09 10:12 13:00 RBC 3.84 L (4.30-5.90) m/uL Hgb 11.2 L (13.0-17.5) gm/dL Hct 34.2 L (39.0-53.0) % Neutrophils # 8.3 H (1.3-7.7) k/uL Lymphocytes # 0.5 L (1.0-4.8) k/uL BUN 23 H (9-20) mg/dL Glucose 114 H (74-99) mg/dL Plasma Lactic Acid Giovany (0.7-2.0) mmol/L Total Bilirubin 1.5 H (0.2-1.3) mg/dL Troponin I 0.131 H* (0.000-0.034) ng/mL 05/01/23 Range/Units 14:10 RBC (4.30-5.90) m/uL Hgb (13.0-17.5) gm/dL Hct (39.0-53.0) % Neutrophils # (1.3-7.7) k/uL Lymphocytes # (1.0-4.8) k/uL BUN (9-20) mg/dL Glucose (74-99) mg/dL Plasma Lactic Acid Giovany 3.3 H* (0.7-2.0) mmol/L Total Bilirubin (0.2-1.3) mg/dL Troponin I (0.000-0.034) ng/mL Thrombosis Risk Factor Assmnt - DVT/VTE Prophylaxis DVT/VTE Prophylaxis: Pharmacologic Prophylaxis ordered Assessment and Plan Assessment: s/p fall and blunt trauma with laceration on rt forehead. Patient was found on the ground Daily alcohol use with concern for aspiration of wine and food last night. 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 Medical management was opted by family during this admission. Possible aspiration pneumonia/pneumonitis Dementia with prior history of behavioral disturbance Atrial fibrillation not on anticoagulation due to high risk for fall Very hard of hearing GI and DVT prophylaxis Plan: Patient will be continued on telemetry monitoring. Patient currently denies any complaints of chest pain. Was given IV Lasix 20 mg x 1 in the ER.. Continue with aspirin Plavix and statins and metoprolol. Patient was started on antibiotics involve ceftriaxone and Flagyl. Monitor for alcohol withdrawal symptoms. Cardiology was consulted due to elevated troponin level. Follow-up closely. Prognosis guarded at this time. PT OT was consulted and possible discharge to rehab. Time with Patient: Greater than 30
[2023-05-02 08:10] LABS: Basophils % (A) 0 %; Eosinophils # (A) 0.1 k/uL (0-0.7); Eosinophils % (A) 1 %; HCT 32.2 % (39.0-53.0); Lymphocytes # (A) 1.2 k/uL (1.0-4.8); Lymphocytes % (A) 13 %; MCH 30.6 pg (25.0-35.0); MCHC 34.2 g/dL (31.0-37.0); MCV 89.7 fL (80.0-100.0); Mean Platelet Volume 8.4; Monocytes # (A) 1.4 k/uL (0-1.0); Monocytes % (A) 15 %; Neutrophils # (A) 6.6 k/uL (1.3-7.7); Neutrophils % (A) 70 %; Platelet Count 152 k/uL (150-450); RDW 14.4 % (11.5-15.5); WBC 9.4 k/uL (3.8-10.6)
[2023-05-02] MEDS: METOPROLOL TARTRATE 25 MG TAB PO SCH (08:27)
[2023-05-02] MEDS: ATORVASTATIN 40 MG TAB PO SCH (08:27)
[2023-05-02] MEDS: CYANOCOBALAMIN 500 MCG TAB PO SCH (08:27)
[2023-05-02] MEDS: ASPIRIN 81 MG PO SCH (08:27)
[2023-05-02] MEDS: HEPARIN SODIUM,PORCINE/PF 5,000 UNIT/0.5 ML SYRINGE SQ SCH ×2 (08:27→21:48)
[2023-05-02] MEDS: CLOPIDOGREL 75 MG TAB PO SCH (08:27)
[2023-05-02 08:53] LABS: ALT 32 U/L (4-49); AST 102 U/L (17-59); African American GFR (CKD) >90 (>60 ml/min/1.73 sqM); Albumin 3.5 g/dL (3.5-5.0); Alkaline Phosphatase 65 U/L (38-126); Anion Gap 8 mmol/L; Blood Urea Nitrogen 23 mg/dL (9-20); Calcium 8.5 mg/dL (8.4-10.2); Carbon Dioxide 25 mmol/L (22-30); Chloride 104 mmol/L (98-107); Glucose 103 mg/dL (74-99); Non-African American GFR(CKD) 81 (>60 ml/min/1.73 sqM); Potassium 4.1 mmol/L (3.5-5.1); Sodium 137 mmol/L (137-145); Total Bilirubin 1.3 mg/dL (0.2-1.3); Total Protein 6.1 g/dL (6.3-8.2)
[2023-05-02] MEDS ORDERED: ASPIRIN 325 MG TAB PO SCH (09:00)
--- NOTE | 2023-05-02 10:09 | P.CRDCN ---
History of Present Illness Consult date: 05/02/23 Chief complaint: change in mental status History of present illness: The patient is an 87-year-old gentleman with a past medical history significant for permanent H evaluation as well as mild cardiomyopathy as well and permanent pacemaker as well as history of alcohol use and history of underlying dementia was brought to the hospital after he was found on the floor. Apparently the night he was drinking heavily. The patient does have mild underlying dementia and also he is very difficult to hear. No indication that he was experiencing any chest pain or chest discomfort and no indication that he was expressing any shortness of breath. He was diagnosed with aspiration pneumonia. We consulted to see the patient because of mildly abnormal troponin with mildly elevated only. The EKG showed atrial flutter patient was diffuse nonspecific ST and T wave abnormalities. He was diagnosed the same last year and he was treated medically. The echo from 2019 showed mildly impaired LV function with EF around 45%. Examination is remarkable for irregular rhythm with a diminished breathing sounds bilaterally and no lower extremities edema noted Assessment Change in mental status which has improved Evidence of myocardial injury was no evidence of ischemia clinically or by EKG Permanent atrial fibrillation not on anticoagulation because of high risk of falling and bleeding History of non-ST elevation myocardial infarction Permanent pacemaker Mild cardiomyopathy Multiple comorbid conditions History of excessive use Plan Consider medical treatment for mildly abnormal troponin Continue the aspirin and Plavix and statin and beta eduarda Obtain an echo to assess for any change in the ejection fraction or wall motion abnormalities Further recommendation to follow Past Medical History Past Medical History: Atrial Fibrillation Additional Past Medical History / Comment(s): fluid on brain 2021, prostrate ca, short term forgetfulness, Last Myocardial Infarction Date:: 2021 History of Any Multi-Drug Resistant Organisms: None Reported Past Surgical History: No Surgical Hx Reported Past Anesthesia/Blood Transfusion Reactions: No Reported Reaction, Unable to Obtain Type of Cardiac Device: Unknown Device Placement Date:: 20 years ago, son says battery was just changed Past Psychological History: No Psychological Hx Reported Smoking Status: Never smoker Past Alcohol Use History: Daily Past Drug Use History: None Reported - Past Family History Brother(s) Additional Family Medical History / Comment(s): bradycardia Medications and Allergies Home Medications Medication Instructions Recorded Confirmed Type Atorvastatin [Lipitor] 40 mg PO DAILY #30 tab 05/14/22 05/01/23 Rx Clopidogrel [Plavix] 75 mg PO DAILY #30 tab 05/14/22 05/01/23 Rx lisinopriL [Zestril] 2.5 mg PO DAILY #30 tab 05/14/22 05/01/23 Rx Aspirin EC [Ecotrin Low Dose] 81 mg PO DAILY 05/01/23 05/01/23 History Cyanocobalamin [Vitamin B-12] 500 mcg PO DAILY 05/01/23 05/01/23 History Metoprolol Tartrate [Lopressor] 25 mg PO DAILY 05/01/23 05/01/23 History Allergies Allergy/AdvReac Type Severity Reaction Status Date / Time No Known Allergies Allergy Verified 05/01/23 15:35 Physical Exam Vitals: Vital Signs Temp Pulse Pulse Resp BP BP Pulse Ox 05/02/23 08:00 98.1 F 89 20 108/61 99 05/02/23 04:00 98.0 F 79 20 117/72 99 05/02/23 01:21 78 20 05/02/23 00:00 97.6 F 78 20 142/77 96 05/01/23 20:00 98.1 F 76 20 133/76 97 05/01/23 16:20 98 F 80 20 159/71 96 05/01/23 14:36 69 16 146/82 97 05/01/23 13:17 81 16 141/78 98 Intake and Output 05/01/23 05/02/23 05/02/23 22:59 06:59 14:59 Intake Total 180 Output Total 200 200 Balance -20 -200 Intake: Oral 180 Output: Urine 200 200 Other: Voiding Method Urinal Urinal # Bowel Movements 1 Weight 54.431 kg Results 05/02/23 06:47 05/02/23 06:47 Cardiac Enzymes 05/01/23 05/01/23 05/01/23 Range/Units 10:12 13:00 15:32 AST 43 (17-59) U/L Troponin I 0.131 H* 0.170 H* (0.000-0.034) ng/mL 05/01/23 05/02/23 Range/Units 17:48 06:47 AST 102 H (17-59) U/L Troponin I 0.217 H* (0.000-0.034) ng/mL Coagulation 05/01/23 Range/Units 10:09 PT 10.8 (9.0-12.0) sec APTT 22.5 (22.0-30.0) sec CBC 05/01/23 05/02/23 Range/Units 10:09 06:47 WBC 9.3 9.4 (3.8-10.6) k/uL RBC 3.84 L 3.60 L (4.30-5.90) m/uL Hgb 11.2 L 11.0 L (13.0-17.5) gm/dL Hct 34.2 L 32.2 L (39.0-53.0) % Plt Count 150 152 (150-450) k/uL Comprehensive Metabolic Panel 05/01/23 05/02/23 Range/Units 10:12 06:47 Sodium 139 137 (137-145) mmol/L Potassium 4.4 4.1 (3.5-5.1) mmol/L Chloride 105 104 (98-107) mmol/L Carbon Dioxide 23 25 (22-30) mmol/L BUN 23 H 23 H (9-20) mg/dL Creatinine 0.84 0.78 (0.66-1.25) mg/dL Glucose 114 H 103 H (74-99) mg/dL Calcium 9.2 8.5 (8.4-10.2) mg/dL AST 43 102 H (17-59) U/L ALT 27 32 (4-49) U/L Alkaline Phosphatase 73 65 (38-126) U/L Total Protein 7.2 6.1 L (6.3-8.2) g/dL Albumin 4.5 3.5 (3.5-5.0) g/dL Current Medications Generic Name Dose Route Start Last Admin Trade Name Dale PRN Reason Stop Dose Admin Aspirin 81 mg 05/02/23 09:00 05/02/23 08:27 Aspirin 81 Mg PO 81 mg DAILY NAYA Administration Atorvastatin Calcium 40 mg 05/02/23 09:00 05/02/23 08:27 Atorvastatin 40 Mg Tab PO 40 mg DAILY NAYA Administration Clopidogrel Bisulfate 75 mg 05/02/23 09:00 05/02/23 08:27 Clopidogrel 75 Mg Tab PO 75 mg DAILY NAYA Administration Cyanocobalamin 500 mcg 05/02/23 09:00 05/02/23 08:27 Cyanocobalamin 500 Mcg Tab PO 500 mcg DAILY NAYA Administration Heparin Sodium (Porcine) 5,000 unit 05/01/23 21:00 05/02/23 08:27 Heparin Sodium,Porcine/Pf 5,000 Unit/0.5 Ml Syringe SQ 5,000 unit Q12HR NAYA Administration Ceftriaxone Sodium 2 gm/ 50 mls @ 100 mls/hr 05/02/23 09:00 05/02/23 08:27 Sodium Chloride IVPB 05/05/23 09:29 100 mls/hr Q24HR NAYA Administration Protocol Metronidazole 500 mg/ IV 100 mls @ 100 mls/hr 05/01/23 18:00 05/02/23 08:28 Solution IVPB 100 mls/hr Q8HR NAYA Administration Protocol Lisinopril 2.5 mg 05/02/23 09:00 05/02/23 08:27 Lisinopril 2.5 Mg Tab PO 2.5 mg DAILY NAYA Administration Metoprolol Tartrate 25 mg 05/02/23 09:00 05/02/23 08:27 Metoprolol Tartrate 25 Mg Tab PO 25 mg DAILY NAYA Administration Miscellaneous Information 1 each 05/01/23 15:05 Pneumonia Protocol Utilized 1 Each Misc PO ONCE PRN Per Protocol Nitroglycerin 0.4 mg 05/01/23 15:03 Nitroglycerin Sl Tabs 0.4 Mg Tab SUBLINGUAL Q5M PRN Chest Pain Intake and Output 05/01/23 05/02/23 05/02/23 22:59 06:59 14:59 Intake Total 180 Output Total 200 200 Balance -20 -200 Intake: Oral 180 Output: Urine 200 200 Other: Voiding Method Urinal Urinal # Bowel Movements 1 Weight 54.431 kg 05/02/23 06:47 05/02/23 06:47
[2023-05-02 13:09] LABS: LDL Cholesterol,Calculated 53.1 mg/dL (0.0-131.0)
--- NOTE | 2023-05-03 01:20 | P.PN ---
Subjective Progress Note Date: 05/02/23 Patient is a 87-year-old male with a known history of non-ST elevated MT opted for medical management as per family in 2021, dementia with behavioral disturbances, severe hearing disorder, paroxysmal atrial fibrillation not on anticoagulation due to fall risk was brought to hospital by his family as he was found on the floor this morning by his . Patient was drinking last night quite heavily and according to his daughter there was concern for choking and aspirated some wine and food last night. Richard hall was found to be not in any distress but he was still spitting of food out and has some holding his nose as well. Patient was found on the floor and also had a laceration of the left eyebrow and also ecchymosis in the right eye. Patient is on aspirin and Plavix at home. Patient is very hard of hearing. Denies any complaints of chest pain or shortness of breath. No complaints of nausea or vomiting. Denies any abdominal pain. EKG showed atrial fibrillation with heart rate 89 Chest x-ray showed cardiomegaly and mild pulmonary vascular congestion. Correlate with BNP for congestive heart failure. CT of the face showed no acute intracranial process. CT will atrophy and nonspecific white matter changes. No evidence of facial bone fracture. No evidence of cervical spine fracture. Moderate to severe multilevel degenerative disc disease. Laboratory data showed WBC 9.3 hemoglobin 11.2 and platelets 150 Sodium 139 potassium 4.4 chloride 105 bicarb is 23 BUN 23 and creatinine 0.84 and blood sugar is 114 total bilirubin 1.5 liver enzymes are not elevated. proBNP is 3540 and troponin 0.131, lactic acid 3.3 and serum alcohol level is less than 10. Patient has prior echocardiogram and April 2022 showed mild LV systolic dysfunction with ejection fraction 45%. Anteroapical hypokinesis. Atypical septal motion. Mild mitral and tricuspid regurgitation. 05/02/2023 Patient is currently sitting in the bed. On room air. Patient is very hard of hearing. No complaints of worsening shortness of breath. No chest pain. No nausea vomiting or diarrhea. Tolerating oral diet. Otherwise laboratory data showed troponin level peaked at 0.217. Lactic acidosis resolved. Other laboratory data showed WBC 9.14 hemoglobin 11.0 and platelets 152 Sodium 137 potassium 4.1 chloride 104 bicarb is 25 BUN 23 and creatinine 0.78 and calcium 8.5. Patient is being continued on antibiotics ceftriaxone and Flagyl. Follow-up procalcitonin level. 2D echocardiogram was ordered. Cardiology is on board. Current medications reviewed. Objective - Vital Signs Vital signs: Vital Signs Temp 97.6 F 05/02/23 12:02 Pulse 81 05/02/23 12:02 Resp 20 05/02/23 12:02 BP 96/54 05/02/23 12:02 Pulse Ox 96 05/02/23 12:02 FiO2 Intake & Output 05/01/23 05/02/23 05/02/23 18:59 06:59 18:59 Intake Total 180 236 Output Total 400 275 Balance 180 -400 -39 Weight 54.431 kg Intake: Oral 180 236 Output: Urine 400 275 Other: Voiding Method Urinal Urinal # Bowel Movements 1 - Exam PHYSICAL EXAMINATION: Patient is lying in the bed comfortably, no acute distress, awake alert patient is hard of hearing... HEENT: Normocephalic. Neck is supple. Pupils reactive. Nostrils with dried blood. Oral cavity is moist. Laceration on the rt forehead and dried blood. Neck reveals no JVD, carotid bruits, or thyromegaly. CHEST EXAMINATION: Trachea is central. Symmetrical expansion. Lung sloan clear to auscultation and percussion. CARDIAC: Normal S1, S2 with no gallops. No murmurs. Regular rate rhythm. ABDOMEN: Soft. Bowel sounds present. Nontender. No organomegaly. No abdominal bruits. Extremities: reveal no edema. No clubbing or cyanosis Neurologically awake, alert. Underlying dementia. Hard of hearing. No gross focal deficits noted Skin: No rash or skin lesions. As above. Psychiatric: Coperative. Could not be assessed completely, Musculoskeletal: No joint swelling or deformity. - Labs CBC & Chem 7: 05/02/23 06:47 05/02/23 06:47 Labs: Abnormal Lab Results - Last 24 Hours (Table) 05/01/23 05/01/23 05/01/23 Range/Units 15:32 17:48 17:48 RBC (4.30-5.90) m/uL Hgb (13.0-17.5) gm/dL Hct (39.0-53.0) % Monocytes # (0-1.0) k/uL BUN (9-20) mg/dL Glucose (74-99) mg/dL Plasma Lactic Acid Giovany 3.2 H* (0.7-2.0) mmol/L AST (17-59) U/L Troponin I 0.170 H* 0.217 H* (0.000-0.034) ng/mL Total Protein (6.3-8.2) g/dL 05/02/23 05/02/23 Range/Units 06:47 06:47 RBC 3.60 L (4.30-5.90) m/uL Hgb 11.0 L (13.0-17.5) gm/dL Hct 32.2 L (39.0-53.0) % Monocytes # 1.4 H (0-1.0) k/uL BUN 23 H (9-20) mg/dL Glucose 103 H (74-99) mg/dL Plasma Lactic Acid Giovany (0.7-2.0) mmol/L AST 102 H (17-59) U/L Troponin I (0.000-0.034) ng/mL Total Protein 6.1 L (6.3-8.2) g/dL Assessment and Plan Assessment: s/p fall and blunt trauma with laceration on rt forehead. Patient was found on the ground Daily alcohol use with concern for aspiration of wine and food last night. Acute on chronic CHF with mildly reduced ejection fraction 45% Elevated troponin level/non-ST elevated MT. Medical management was opted by family during this admission. Possible aspiration pneumonia/pneumonitis Dementia with prior history of behavioral disturbance Atrial fibrillation not on anticoagulation due to high risk for fall Very hard of hearing GI and DVT prophylaxis Plan: Patient will be continued on telemetry monitoring. Patient currently denies any complaints of chest pain. Was given IV Lasix 20 mg x 1 in the ER.. Continue with aspirin Plavix and statins and metoprolol. Patient was started on antibiotics involve ceftriaxone and Flagyl. Monitor for alcohol withdrawal symptoms. Cardiology was consulted due to elevated troponin level. Repeat 2D echocardiogram was ordered to evaluate left ventricular function. Follow-up closely. Prognosis guarded at this time. PT OT was consulted and possible discharge to rehab. Time with Patient: Greater than 30
[2023-05-03 08:26] LABS: Basophils % (A) 0 %; Eosinophils # (A) 0.2 k/uL (0-0.7); Eosinophils % (A) 3 %; HCT 30.4 % (39.0-53.0); Hypochromasia Slight; Lymphocytes # (A) 0.6 k/uL (1.0-4.8); Lymphocytes % (A) 11 %; MCH 30.6 pg (25.0-35.0); MCV 92.7 fL (80.0-100.0); Mean Platelet Volume 8.4; Monocytes # (A) 0.6 k/uL (0-1.0); Monocytes % (A) 11 %; Neutrophils # (A) 4.2 k/uL (1.3-7.7); Neutrophils % (A) 74 %; Platelet Count 127 k/uL (150-450); RBC 3.28 m/uL (4.30-5.90); RDW 14.1 % (11.5-15.5); WBC 5.7 k/uL (3.8-10.6)
[2023-05-03 08:55] LABS: African American GFR (CKD) >90 (>60 ml/min/1.73 sqM); Anion Gap 8 mmol/L; Blood Urea Nitrogen 25 mg/dL (9-20); Calcium 8.2 mg/dL (8.4-10.2); Carbon Dioxide 22 mmol/L (22-30); Chloride 106 mmol/L (98-107); Glucose 111 mg/dL (74-99); Non-African American GFR(CKD) 83 (>60 ml/min/1.73 sqM); Potassium 4.1 mmol/L (3.5-5.1); Sodium 136 mmol/L (137-145)
[2023-05-03] MEDS: CLOPIDOGREL 75 MG TAB PO SCH (09:44)
[2023-05-03] MEDS: metroNIDAZOLE-NS PMX 500 MG in SALINE 1 100ML.BAG IVPB SCH ×2 (09:44→16:53)
[2023-05-03] MEDS: ATORVASTATIN 40 MG TAB PO SCH (09:44)
[2023-05-03] MEDS: CYANOCOBALAMIN 500 MCG TAB PO SCH (09:44)
[2023-05-03] MEDS: ASPIRIN 81 MG PO SCH (09:44)
[2023-05-03] MEDS: HEPARIN SODIUM,PORCINE/PF 5,000 UNIT/0.5 ML SYRINGE SQ SCH ×2 (09:44→21:56)
[2023-05-03] MEDS: METOPROLOL SUCCINATE (ER) 25 MG TAB.ER.24H PO SCH (10:21)
--- NOTE | 2023-05-03 12:58 | CA ---
Transthoracic Echo Report Name: Jace Guthrie Age: 87 Gender: M : 1935 Exam Date: 05/03/2023 08:48 Exam Location: [facility] Ht (in): 66 Wt (lb): 120 Ordering Physician: Ant Palmer MD ([id number]) Attending/Referring Phys: Craft Manager Steph Clarke RDCS Procedure CPT: Indications: LV function Cardiac Hx: Pacemaker Technical Quality: Good Contrast 1: Total Dose (mL): Contrast 2: Total Dose (mL): MEASUREMENTS (Male / Female) Normal Values 2D ECHO LV Diastolic Diameter PLAX 4.2 cm 4.2 - 5.9 / 3.9 - 5.3 cm LV Systolic Diameter PLAX 2.7 cm IVS Diastolic Thickness 1.3 cm 0.6 - 1.0 / 0.6 - 0.9 cm LVPW Diastolic Thickness 1.3 cm 0.6 - 1.0 / 0.6 - 0.9 cm LV Relative Wall Thickness 0.6 RV Internal Dim ED PLAX 3.7 cm LVOT Diameter 2.2 cm LA Systolic Diameter LX 3.7 cm 3.0 - 4.0 / 2.7 - 3.8 cm LV Diastolic Volume MOD 4C 50.8 cm??? LV Systolic Volume MOD 4C 28.0 cm??? LV Ejection Fraction MOD 4C 44.9 % LV Cardiac Index MOD 4C 1292.8 cm???/min???m??? LV Diastolic Length 4C 7.0 cm LV Systolic Length 4C 5.8 cm LV Diastolic Volume MOD 2C 81.1 cm??? LV Systolic Volume MOD 2C 37.4 cm??? LV Ejection Fraction MOD 2C 53.8 % LV Cardiac Index MOD 2C 2475.1 cm???/min???m??? LV Diastolic Length 2C 7.3 cm LV Systolic Length 2C 6.5 cm LA Volume 53.0 cm??? 18 - 58 / 22 - 52 cm??? M-MODE Aortic Root Diameter MM 3.5 cm MV E Point Septal Separation 0.6 cm AV Cusp Separation MM 1.9 cm DOPPLER AV Peak Velocity 193.3 cm/s AV Peak Gradient 14.9 mmHg AV Mean Velocity 124.9 cm/s AV Mean Gradient 7.3 mmHg AV Velocity Time Integral 36.5 cm AI Peak Velocity 456.2 cm/s AI Peak Gradient 83.3 mmHg AI Pressure Half Time 556.4 ms LVOT Peak Velocity 102.6 cm/s LVOT Peak Gradient 4.2 mmHg AV Area Cont Eq pk 2.1 cm??? MV Area PHT 5.0 cm??? MV Deceleration Time 155.1 ms TR Peak Velocity 377.0 cm/s TR Peak Gradient 56.8 mmHg Right Ventricular Systolic Press 60.0 mmHg FINDINGS Left Ventricle Left ventricular ejection fraction is estimated at 45 %. Left ventricular cavity size normal. Mildly increased septal wall thickness. Right Ventricle Mild right ventricular dilatation. Severe pulmonary hypertension. Right ventricular systolic pressure estimated at 60 mm hg. Right Atrium Normal right atrial size. Left Atrium Normal left atrial size. Mitral Valve Mitral valve thickened. Mild mitral regurgitation. Mitral annular calcification. Aortic Valve Trileaflet aortic valve. Aortic valve sclerosis. Ayhj-xf-iaeldhls aortic regurgitation. Mild aortic stenosis with a peak gradient of 15 mmHg and a mean gradient of 7 mmHg. Tricuspid Valve Structurally normal tricuspid valve. Tozduhlh-dv-fyeniq tricuspid regurgitation. Pulmonic Valve Structurally normal pulmonic valve. [id number] pulmonic regurgitation. Pericardium Normal pericardium. No pericardial effusion. Aorta Normal size aortic root and proximal ascending aorta. CONCLUSIONS Left ventricular ejection fraction 45% RVSP 60 Mild right ventricular dilation Mild mitral regurgitation Mild to moderate aortic regurgitation Mild aortic stenosis Moderate to severe tricuspid regurgitation No pericardial effusion Previewed by: Dr. Kory Toledo DO (Electronically Signed) Final Date: 03 May 2023 12:58
--- NOTE | 2023-05-03 14:15 | P.PN ---
Subjective Progress Note Date: 05/03/23 The patient is an 87-year-old gentleman with a past medical history significant for permanent H evaluation as well as mild cardiomyopathy as well and permanent pacemaker as well as history of alcohol use and history of underlying dementia was brought to the hospital after he was found on the floor. Apparently the night he was drinking heavily. The patient does have mild underlying dementia and also he is very difficult to hear. No indication that he was experiencing any chest pain or chest discomfort and no indication that he was expressing any shortness of breath. He was diagnosed with aspiration pneumonia. We consulted to see the patient because of mildly abnormal troponin with mildly elevated only. The EKG showed atrial flutter patient was diffuse nonspecific ST and T wave abnormalities. He was diagnosed the same last year and he was treated medically. The echo from 2019 showed mildly impaired LV function with EF around 45%. 05/03 Patient is seen today in follow-up. 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 Heart rate is in the 60s, blood pressure 121/79. Repeat blood work reveals hemoglobin of 10, BUN 25 creatinine 0.75. Echocardiogram reveals EF of 45%, RVSP 60, mild right ventricular dilation, mild mitral regurgitation, sqhy-si-sgsgnhus aortic regurgitation, mild aortic stenosis, moderate to severe tricuspid regurgitation, no pericardial effusion. Examination is remarkable for irregular rhythm with a diminished breathing sounds bilaterally and no lower extremities edema noted Assessment Change in mental status which has improved Evidence of myocardial injury was no evidence of ischemia clinically or by EKG Permanent atrial fibrillation not on anticoagulation because of high risk of falling and bleeding History of non-ST elevation myocardial infarction Permanent pacemaker Mild cardiomyopathy Multiple comorbid conditions History of excessive use Plan Consider medical treatment for mildly abnormal troponin Continue the aspirin and Plavix and statin and beta eduarda Further recommendation to follow Nurse practitioner note has been reviewed, I agree with the documented findings and plan of care. Patient was seen and examined. Objective - Vital Signs Vital signs: Vital Signs Temp 98.3 F 05/03/23 04:00 Pulse 84 05/03/23 04:00 Resp 20 05/03/23 04:00 BP 129/68 05/03/23 04:00 Pulse Ox 99 05/03/23 08:24 FiO2 Intake & Output 05/02/23 05/03/23 05/03/23 18:59 06:59 18:59 Intake Total 504 100 120 Output Total 275 Balance 229 100 120 Intake: Intake, IV Titration 150 100 Amount cefTRIAXone 2 gm In 50 Sodium Chloride 0.9% 50 ml @ 100 mls/hr IVPB Q24HR NAYA Rx#:[id number]-NS PMX 500 100 100 mg In Saline 1 100ml.bag @ 100 mls/hr IVPB Q8HR [facility] Rx#:[id number] Oral 354 120 Output: Urine 275 Other: Voiding Method Urinal # Voids 1 - Labs CBC & Chem 7: 05/03/23 07:17 05/03/23 07:17 Labs: Abnormal Lab Results - Last 24 Hours (Table) 05/02/23 05/03/23 Range/Units 06:47 07:17 RBC 3.28 L (4.30-5.90) m/uL Hgb 10.0 L (13.0-17.5) gm/dL Hct 30.4 L (39.0-53.0) % Plt Count 127 L (150-450) k/uL Lymphocytes # 0.6 L (1.0-4.8) k/uL BUN 23 H (9-20) mg/dL Glucose 103 H (74-99) mg/dL AST 102 H (17-59) U/L Total Protein 6.1 L (6.3-8.2) g/dL Microbiology - Last 24 Hours (Table) 05/01/23 14:10 Blood Culture - Preliminary Blood
[2023-05-03] MEDS ORDERED: IPRATROPIUM-ALBUTEROL 3 ML NEB INHALATION PRN (16:52)
[2023-05-03] MEDS: METOPROLOL TARTRATE 25 MG TAB PO SCH (20:12)
[2023-05-03] MEDS: IPRATROPIUM-ALBUTEROL 3 ML NEB INHALATION SCH (21:21)
[2023-05-03] MEDS: PIPERACILLIN-TAZOBACTAM 3.375 GM in SODIUM CHLORIDE 0.9% 100 ML IVPB SCH (21:55)
[2023-05-04] MEDS: metroNIDAZOLE-NS PMX 500 MG in SALINE 1 100ML.BAG IVPB SCH ×3 (01:01→16:25)
[2023-05-04] MEDS: PIPERACILLIN-TAZOBACTAM 3.375 GM in SODIUM CHLORIDE 0.9% 100 ML IVPB SCH ×4 (02:11→20:24)
--- NOTE | 2023-05-04 02:49 | PN ---
PROGRESS NOTE DATE OF SERVICE: 05/03/2023 HISTORY OF PRESENT ILLNESS: This 87-year-old gentleman, who was admitted with fall and laceration of the forehead, was on the ground. The patient with history of EtOH. The troponin is also elevated. Cardiology following the patient closely. The patient also had possible aspiration pneumonia. PAST MEDICAL HISTORY: Reviewed. REVIEW OF SYSTEMS: Not taken. CURRENT MEDICATIONS: Reviewed include Lipitor and Rocephin. Doses and rest of medications noted. PHYSICAL EXAMINATION: VITAL SIGNS: Pulse is 60, blood pressure 110/67, respirations 16. HEENT: Conjunctivae normal. NECK: No JVD. CARDIAC: S1, S2 muffled. RESPIRATORY: Scattered rhonchi are present. ABDOMEN: Soft. NERVOUS SYSTEM: Nonfocal. LABORATORY DATA: Reviewed. Chest x-ray reviewed personally. CT scan reviewed. ASSESSMENT: 1. Fall and laceration, blunt trauma and laceration of the forehead. 2. Acute right lower lobe pneumonia, possibly aspiration. 3. Congestive heart failure, acute exacerbation, with acute on chronic systolic dysfunction, ejection fraction 45%. 4. History of ETOH abuse. 5. History of dementia. 6. Atrial fibrillation. 7. Multiple medical issues. RECOMMENDATIONS: Recommend to continue current management, continue with bronchodilators, continue with empiric antibiotics. Closely follow. Prognosis is guarded. Further recommendations to follow. See orders for details. Repeat labs in the morning. Closely follow with Cardiology. MMODL / IJN: [id number] /
[2023-05-04 08:15] LABS: Basophils % (A) 0 %; Eosinophils # (A) 0.3 k/uL (0-0.7); Eosinophils % (A) 6 %; HCT 32.7 % (39.0-53.0); HGB 10.6 gm/dL (13.0-17.5); Hypochromasia Slight; Lymphocytes # (A) 0.7 k/uL (1.0-4.8); Lymphocytes % (A) 14 %; MCH 29.9 pg (25.0-35.0); MCHC 32.6 g/dL (31.0-37.0); MCV 91.7 fL (80.0-100.0); Monocytes # (A) 0.5 k/uL (0-1.0); Monocytes % (A) 10 %; Neutrophils # (A) 3.4 k/uL (1.3-7.7); Neutrophils % (A) 68 %; Platelet Count 166 k/uL (150-450); RBC 3.56 m/uL (4.30-5.90)
[2023-05-04 08:29] LABS: African American GFR (CKD) >90 (>60 ml/min/1.73 sqM); Anion Gap 8 mmol/L; Blood Urea Nitrogen 19 mg/dL (9-20); Calcium 8.3 mg/dL (8.4-10.2); Carbon Dioxide 26 mmol/L (22-30); Chloride 105 mmol/L (98-107); Glucose 104 mg/dL (74-99); Non-African American GFR(CKD) 81 (>60 ml/min/1.73 sqM); Potassium 4.2 mmol/L (3.5-5.1); Sodium 139 mmol/L (137-145)
[2023-05-04] MEDS: IPRATROPIUM-ALBUTEROL 3 ML NEB INHALATION SCH ×3 (09:11→20:01)
[2023-05-04] MEDS: METOPROLOL SUCCINATE (ER) 25 MG TAB.ER.24H PO SCH (09:50)
[2023-05-04] MEDS: CLOPIDOGREL 75 MG TAB PO SCH (09:50)
[2023-05-04] MEDS: ATORVASTATIN 40 MG TAB PO SCH (09:50)
[2023-05-04] MEDS: HEPARIN SODIUM,PORCINE/PF 5,000 UNIT/0.5 ML SYRINGE SQ SCH ×2 (09:50→20:25)
[2023-05-04] MEDS: CYANOCOBALAMIN 500 MCG TAB PO SCH (09:50)
[2023-05-04] MEDS: ASPIRIN 81 MG PO SCH (09:50)
--- NOTE | 2023-05-04 14:52 | P.PN ---
Subjective Progress Note Date: 05/04/23 The patient is an 87-year-old gentleman with a past medical history significant for permanent H evaluation as well as mild cardiomyopathy as well and permanent pacemaker as well as history of alcohol use and history of underlying dementia was brought to the hospital after he was found on the floor. Apparently the night he was drinking heavily. The patient does have mild underlying dementia and also he is very difficult to hear. No indication that he was experiencing any chest pain or chest discomfort and no indication that he was expressing any shortness of breath. He was diagnosed with aspiration pneumonia. We consulted to see the patient because of mildly abnormal troponin with mildly elevated only. The EKG showed atrial flutter patient was diffuse nonspecific ST and T wave abnormalities. He was diagnosed the same last year and he was treated medically. The echo from 2019 showed mildly impaired LV function with EF around 45%. 05/03 Patient is seen today in follow-up. 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 Heart rate is in the 60s, blood pressure 121/79. Repeat blood work reveals hemoglobin of 10, BUN 25 creatinine 0.75. Echocardiogram reveals EF of 45%, RVSP 60, mild right ventricular dilation, mild mitral regurgitation, ekpj-cn-yqijqktf aortic regurgitation, mild aortic stenosis, moderate to severe tricuspid regurgitation, no pericardial effusion. 05/04 Patient is seen today in follow-up. Blood pressure 142/58, heart rate in the 60s to 90s. Repeat blood work reveals hemoglobin 10.6, potassium 4.2, BUN 19 and creatinine 0.78. Examination is remarkable for irregular rhythm with a diminished breathing sounds bilaterally and no lower extremities edema noted Assessment Change in mental status which has improved Evidence of myocardial injury was no evidence of ischemia clinically or by EKG Permanent atrial fibrillation not on anticoagulation because of high risk of falling and bleeding History of non-ST elevation myocardial infarction Permanent pacemaker Mild cardiomyopathy Multiple comorbid conditions History of excessive use Plan Consider medical treatment for mildly abnormal troponin Continue the aspirin and Plavix and statin and beta eduarda Increase lisinopril to 5 mg daily for better blood pressure control. Cardiology will sign off and follow on an as needed basis. Please reconsult for any new concerns. Nurse practitioner note has been reviewed, I agree with the documented findings and plan of care. Patient was seen and examined. Objective - Vital Signs Vital signs: Vital Signs Temp 96.2 F L 05/04/23 08:46 Pulse 92 05/04/23 09:22 Resp 14 05/04/23 08:46 BP 142/58 05/04/23 08:46 Pulse Ox 98 05/04/23 09:14 FiO2 21 05/04/23 09:14 Intake & Output 05/03/23 05/04/23 05/04/23 18:59 06:59 18:59 Intake Total 240 118 Balance 240 118 Intake: Oral 240 118 Other: Voiding Method Urinal Urinal # Voids 1 1 - Labs CBC & Chem 7: 05/04/23 07:36 05/04/23 07:36 Labs: Abnormal Lab Results - Last 24 Hours (Table) 05/04/23 05/04/23 Range/Units 07:36 07:36 RBC 3.56 L (4.30-5.90) m/uL Hgb 10.6 L (13.0-17.5) gm/dL Hct 32.7 L (39.0-53.0) % Lymphocytes # 0.7 L (1.0-4.8) k/uL Glucose 104 H (74-99) mg/dL Calcium 8.3 L (8.4-10.2) mg/dL Microbiology - Last 24 Hours (Table) 05/01/23 14:10 Blood Culture - Preliminary Blood
--- NOTE | 2023-05-04 20:09 | PN ---
PROGRESS NOTE DATE OF SERVICE: 05/04/2023 SUBJECTIVE: This is an 87-year-old gentleman who was admitted with fall and laceration, also had acute right lobe pneumonia, possibly aspiration. The patient is on antibiotics. The patient is feeling slightly better. OBJECTIVE: VITAL SIGNS: Pulse is 78, blood pressure 130/60, respirations 16. CHEST: A few scattered rhonchi. ABDOMEN: Soft. NERVOUS SYSTEM: Nonfocal. LABORATORY DATA: Reviewed. ASSESSMENT: 1. Acute right lobe pneumonia, possibly aspiration. 2. Fall and laceration, blunt trauma and laceration of the forehead. 3. Congestive heart failure acute exacerbation with acute on chronic systolic dysfunction, ejection fraction 45%. 4. History of EtOH abuse. 5. History of dementia. 6. Gait dysfunction. 7. Atrial fibrillation. 8. Multiple medical issues. RECOMMENDATIONS: Recommend to continue current management and symptomatic treatment, possible ECF rehab. PT, OT. Continue the antibiotics. Prognosis guarded. MMODL / IJN: [id number] /
[2023-05-05] MEDS: metroNIDAZOLE-NS PMX 500 MG in SALINE 1 100ML.BAG IVPB SCH ×3 (05:40→17:24)
[2023-05-05] MEDS: PIPERACILLIN-TAZOBACTAM 3.375 GM in SODIUM CHLORIDE 0.9% 100 ML IVPB SCH ×3 (07:01→21:12)
[2023-05-05] MEDS: IPRATROPIUM-ALBUTEROL 3 ML NEB INHALATION SCH ×3 (07:20→20:20)
[2023-05-05 09:06] LABS: African American GFR (CKD) >90 (>60 ml/min/1.73 sqM); Anion Gap 7 mmol/L; Blood Urea Nitrogen 23 mg/dL (9-20); Calcium 8.4 mg/dL (8.4-10.2); Carbon Dioxide 24 mmol/L (22-30); Chloride 106 mmol/L (98-107); Glucose 96 mg/dL (74-99); Magnesium 2.1 mg/dL (1.6-2.3); Non-African American GFR(CKD) 80 (>60 ml/min/1.73 sqM); Potassium 4.3 mmol/L (3.5-5.1); Sodium 137 mmol/L (137-145)
[2023-05-05 09:46] LABS: Basophils % (A) 1 %; Eosinophils # (A) 0.4 k/uL (0-0.7); Eosinophils % (A) 7 %; HCT 32.2 % (39.0-53.0); HGB 10.7 gm/dL (13.0-17.5); Hypochromasia Slight; Lymphocytes # (A) 0.7 k/uL (1.0-4.8); Lymphocytes % (A) 13 %; MCH 30.5 pg (25.0-35.0); MCHC 33.2 g/dL (31.0-37.0); MCV 91.9 fL (80.0-100.0); Mean Platelet Volume 9.2; Monocytes # (A) 0.5 k/uL (0-1.0); Monocytes % (A) 10 %; Neutrophils # (A) 3.3 k/uL (1.3-7.7); Neutrophils % (A) 67 %; Platelet Count 175 k/uL (150-450); WBC 4.9 k/uL (3.8-10.6)
[2023-05-05] MEDS: CYANOCOBALAMIN 500 MCG TAB PO SCH (11:06)
[2023-05-05] MEDS: ATORVASTATIN 40 MG TAB PO SCH (11:07)
[2023-05-05] MEDS: ASPIRIN 81 MG PO SCH (11:07)
[2023-05-05] MEDS: CLOPIDOGREL 75 MG TAB PO SCH (11:07)
[2023-05-05] MEDS: METOPROLOL SUCCINATE (ER) 25 MG TAB.ER.24H PO SCH (11:07)
[2023-05-05] MEDS: lisinopriL 5 MG TAB PO SCH (11:07)
[2023-05-05] MEDS: HEPARIN SODIUM,PORCINE/PF 5,000 UNIT/0.5 ML SYRINGE SQ SCH ×2 (11:07→21:12)
--- NOTE | 2023-05-05 12:55 | PN ---
PROGRESS NOTE DATE OF SERVICE: 05/05/2023 SUBJECTIVE: This is an 87-year-old gentleman admitted with right lower lobe pneumonia, possibly aspiration, had history of fall also. PT, OT evaluating the patient and awaiting rehab. OBJECTIVE: VITAL SIGNS: Pulse is 111, blood pressure 107/70, respirations 16. CHEST: A few scattered rhonchi. ABDOMEN: Soft. NERVOUS SYSTEM: Nonfocal. LABORATORY DATA: Reviewed. ASSESSMENT: 1. Acute right lower lobe pneumonia, possibly aspiration. 2. Fall and laceration, blunt trauma, and laceration of the forehead. 3. Congestive heart failure acute exacerbation with acute on chronic systolic dysfunction, ejection fraction 45%. 4. History of EtOH abuse. 5. History of dementia. 6. Gait dysfunction, atrial fibrillation. 7. Multiple medical issues. RECOMMENDATIONS AND DISCUSSION: Recommend to continue the current medications. Continue symptomatic treatment. I would recommend a repeat CT scan and continue to monitor. Further recommendations to follow. MMODL / IJN: [id number] /
--- NOTE | 2023-05-05 12:55 | CT ---
EXAMINATION TYPE: CT brain wo con DATE OF EXAM: 05/05/2023 COMPARISON: 05/01/2023 HISTORY: CVI CT DLP: 1158.4 mGycm Automated exposure control for dose reduction was used. FINDINGS: There is a moderate generalized degenerative change with bilateral basal ganglia calcification stable . Dilation of the right temporal horn with encephalomalacia. Periventricular low attenuation is nonsp ecific. There is no midline shift or mass effect. No acute hemorrhage. Calvarium is intact. Craniocervical junction maintained. Partially empty sella turcica. Changes of ch ronic bilateral mastoiditis. IMPRESSION: DEGENERATIVE AND REMOTE ISCHEMIC CHANGE WITH NO EVIDENCE OF ACUTE HEMORRHAGE OR MASS EFFECT. A BILATE RAL TEMPORAL HORN ENLARGEMENT SUGGESTIVE OF ENCEPHALOMALACIA AND PREVIOUS INFARCT. THERE IS GREATER V ENTRICULAR DILATION RELATIVE TO THE SULCI. COMPONENT OF NORMAL PRESSURE HYDROCEPHALUS IN THE DIFFEREN TIAL DIAGNOSIS. CORRELATE CLINICALLY.
[2023-05-06] MEDS: metroNIDAZOLE-NS PMX 500 MG in SALINE 1 100ML.BAG IVPB SCH ×3 (01:02→16:28)
[2023-05-06] MEDS: PIPERACILLIN-TAZOBACTAM 3.375 GM in SODIUM CHLORIDE 0.9% 100 ML IVPB SCH ×2 (06:20→16:27)
[2023-05-06 07:01] LABS: Basophils % (A) 0 %; Eosinophils # (A) 0.4 k/uL (0-0.7); Eosinophils % (A) 7 %; HCT 33.3 % (39.0-53.0); HGB 10.7 gm/dL (13.0-17.5); Hypochromasia Slight; Lymphocytes # (A) 0.7 k/uL (1.0-4.8); Lymphocytes % (A) 14 %; MCH 29.9 pg (25.0-35.0); MCHC 32.3 g/dL (31.0-37.0); MCV 92.6 fL (80.0-100.0); Mean Platelet Volume 8.2; Monocytes # (A) 0.4 k/uL (0-1.0); Monocytes % (A) 8 %; Neutrophils # (A) 3.7 k/uL (1.3-7.7); Neutrophils % (A) 70 %; Platelet Count 187 k/uL (150-450); RBC 3.59 m/uL (4.30-5.90); RDW 14.2 % (11.5-15.5); WBC 5.3 k/uL (3.8-10.6)
[2023-05-06 07:33] LABS: African American GFR (CKD) >90 (>60 ml/min/1.73 sqM); Anion Gap 8 mmol/L; Blood Urea Nitrogen 20 mg/dL (9-20); Calcium 8.5 mg/dL (8.4-10.2); Carbon Dioxide 23 mmol/L (22-30); Chloride 105 mmol/L (98-107); Glucose 98 mg/dL (74-99); Non-African American GFR(CKD) 83 (>60 ml/min/1.73 sqM); Potassium 4.1 mmol/L (3.5-5.1); Sodium 136 mmol/L (137-145)
[2023-05-06] MEDS: IPRATROPIUM-ALBUTEROL 3 ML NEB INHALATION SCH ×2 (08:38→12:53)
[2023-05-06 09:54] VITALS: BMI 24.0
[2023-05-06] MEDS: lisinopriL 5 MG TAB PO SCH (10:18)
[2023-05-06] MEDS: METOPROLOL SUCCINATE (ER) 25 MG TAB.ER.24H PO SCH (10:18)
[2023-05-06] MEDS: CYANOCOBALAMIN 500 MCG TAB PO SCH (10:18)
[2023-05-06] MEDS: ASPIRIN 81 MG PO SCH (10:18)
[2023-05-06] MEDS: CLOPIDOGREL 75 MG TAB PO SCH (10:18)
[2023-05-06] MEDS: ATORVASTATIN 40 MG TAB PO SCH (10:18)
[2023-05-06] MEDS: HEPARIN SODIUM,PORCINE/PF 5,000 UNIT/0.5 ML SYRINGE SQ SCH (10:19)
[2023-05-06 12:51] VITALS: BP 112/70; PULSE 78; RESP 18; TEMP 97.7
--- NOTE | 2023-05-06 13:16 | P.DS ---
Providers Date of admission: 05/01/23 15:03 Expected date of discharge: 05/06/23 Attending physician: Eliezer Paniagua Consults: 05/01/23 15:03 Consult Physician Urgent Consulting Provider: [facility] Consult Reason/Comments: Elevated troponin Do you want consulting provider notified?: Yes Primary care physician: Gume Herrera [facility] Course: Final diagnosis acute right lower lobe pneumonia, possibly aspiration pneumonia Fall and laceration to the forehead, blunt trauma Congestive heart failure acute exacerbation with acute on chronic systolic dysfunction, EF is 45% History of EtOH abuse, recently cardiomyopathy with permanent pacemaker placement History of permanent atrial fibrillation not on anticoagulation due to high risk of falls History of dementia gait dysfunction History of atrial fibrillation no code Discharge disposition Patient is being discharged in a stable condition with guarded prognosis to [facility]. Patient will follow-up with Dr. Herrera in the outpatient setting upon discharge. Patient is to continue with oral Augmentin twice daily for the next 5 days to complete the course. Total time taken is greater than 35 minutes. Hospital course This is a 87-year-old male who was recently admitted with falls and weakness with concerns of possibly aspiration pneumonia. Patient with significant weakness and was evaluated by physical therapy recommending rehab and family also reports unable to care for him and his dementia appears to be progressing. patient was seen and evaluated by cardiology during hospitalization given his cardiac history and had cleared the patient for discharge. Please refer to cardiology note for further HPI. Patient continues to use alcohol as well per family and has an extensive history of alcohol abuse. patient was maintained on empiric antibiotics and will continue on Augmentin twice daily for the next 5 days to complete the course. Currently no reports of chest pain, shortness of breath, or palpitations. Patient is afebrile. No reports of nausea or vomiting and patient is tolerating diet. Patient will be going to [facility] today. guarded prognosis Physical exam: Gen: This is a 87-year-old male who is awake, alert and oriented 1-2 thin built, elderly appearing HEENT: Head is atraumatic, normocephalic. Pupils equal, round. Sclerae is anicteric. NECK: Supple. No JVD. No lymphadenopathy. No thyromegaly. LUNGS: Clear to auscultation. No wheezes or rhonchi. No intercostal retractions. HEART: Regular rate and rhythm. No murmur. ABDOMEN: Soft. Bowel sounds are present. No masses. No tenderness. EXTREMITIES: No pedal edema. No calf tenderness. NEUROLOGICAL: Patient is awake, alert and oriented x1-2. Cranial nerves 2 through 12 are grossly intact. diffusely weak Please refer to medication reconciliation sheet for a list of medications. The impression and plan of care has been dictated by Franca Aden, Nurse Practitioner as directed. Dr. Siva MD I have performed a history and examination and MDM of this patient, discussed the same with the dictator, and agree with the dictator's assessment and plan as written ,documented as a scribe. Based on total visit time, I have performed more than 50% of the visit. Patient Condition at Discharge: Fair Plan - Discharge Summary Discharge Rx Participant: No New Discharge Prescriptions: New Ipratropium-Albuterol Nebulize [Duoneb 0.5 mg-3 mg/3 ml Soln] 3 ml INHALATION RT-TID PRN each PRN Reason: Shortness Of Breath Or Wheezing Nitroglycerin Sl Tabs [Nitrostat] 0.4 mg SUBLINGUAL Q5M PRN tab PRN Reason: Chest Pain lisinopriL [Zestril] 5 mg PO DAILY tab Amoxic-Pot Clav 875-125Mg [Augmentin 875-125] 1 tab PO Q12HR 7 Days #14 tab Ipratropium-Albuterol Nebulize [Duoneb 0.5 mg-3 mg/3 ml Soln] 3 ml INHALATION RT-TID each Heparin Sodium,Porcine [Heparin Sodium] 5,000 unit SQ Q12HR #60 each Metoprolol Succinate (ER) [Toprol XL] 25 mg PO DAILY tab Continue Atorvastatin [Lipitor] 40 mg PO DAILY #30 tab Clopidogrel [Plavix] 75 mg PO DAILY #30 tab Aspirin EC [Ecotrin Low Dose] 81 mg PO DAILY Cyanocobalamin [Vitamin B-12] 500 mcg PO DAILY Discontinued lisinopriL [Zestril] 2.5 mg PO DAILY #30 tab Metoprolol Tartrate [Lopressor] 25 mg PO DAILY Discharge Medication List Atorvastatin [Lipitor] 40 mg PO DAILY #30 tab 05/14/22 [Rx] Clopidogrel [Plavix] 75 mg PO DAILY #30 tab 05/14/22 [Rx] Aspirin EC [Ecotrin Low Dose] 81 mg PO DAILY 05/01/23 [History] Cyanocobalamin [Vitamin B-12] 500 mcg PO DAILY 05/01/23 [History] Amoxic-Pot Clav 875-125Mg [Augmentin 875-125] 1 tab PO Q12HR 7 Days #14 tab 05/06/23 [Rx] Heparin Sodium,Porcine [Heparin Sodium] 5,000 unit SQ Q12HR #60 each 05/06/23 [Rx] Ipratropium-Albuterol Nebulize [Duoneb 0.5 mg-3 mg/3 ml Soln] 3 ml INHALATION RT-TID each 05/06/23 [Rx] Ipratropium-Albuterol Nebulize [Duoneb 0.5 mg-3 mg/3 ml Soln] 3 ml INHALATION RT-TID PRN each 05/06/23 [Rx] Metoprolol Succinate (ER) [Toprol XL] 25 mg PO DAILY tab 05/06/23 [Rx] Nitroglycerin Sl Tabs [Nitrostat] 0.4 mg SUBLINGUAL Q5M PRN tab 05/06/23 [Rx] lisinopriL [Zestril] 5 mg PO DAILY tab 05/06/23 [Rx] Follow up Appointment(s)/Referral(s): Nonstaff,Physician [REFERRING] - 1-2 days Ambulatory/Diagnostic Orders: Complete Blood Count w/diff [LAB.AMB] Time Frame: 3 Days, Location: None Selected Activity/Diet/Wound Care/Special Instructions: activity as tolerated Patient is going to ECF Continue antibiotics for 7 days and then may discontinue continue heart healthy diet recommend repeat labs of CBC, BMP, magnesium in 2-3 days recommend aspiration precautions with head of the bed elevated 30-45 at all times and supervision with meals Discharge Disposition: TRANSFER TO SNF/ECF
[2023-05-07 15:37] LABS: Cryptosporidium Antigen Negative (Negative)
== END 2023-05-06 17:28 | DRG 177 ==
LOC: EC 09:41 → 3SCARD 15:03 → 5NMEDONC 05-05 22:34
PROVIDERS: ADMIT Hospitalist; ATTEND Hospitalist
PROC: 0HQ1XZZ Repair Face Skin, External Approach (ICD-10-PCS; principal; 2023-05-01)
PROC: 3E0234Z Introduction of Serum, Toxoid and Vaccine into Muscle, Percutaneous Approach (ICD-10-PCS; 2023-05-01)
DX: J69.0 Pneumonitis due to inhalation of food and vomit (principal); I21.4 Non-ST elevation (NSTEMI) myocardial infarction; I50.23 Acute on chronic systolic (congestive) heart failure; I48.92 Unspecified atrial flutter; I48.21 Permanent atrial fibrillation; I42.9 Cardiomyopathy, unspecified; W19.XXXA Unspecified fall, initial encounter; F03.90 Unspecified dementia, unspecified severity, without behavioral disturbance, psychotic disturbance, mood disturbance, and anxiety; R26.9 Unspecified abnormalities of gait and mobility; I08.1 Rheumatic disorders of both mitral and tricuspid valves; S01.81XA Laceration without foreign body of other part of head, initial encounter; H91.90 Unspecified hearing loss, unspecified ear; I11.0 Hypertensive heart disease with heart failure; R00.1 Bradycardia, unspecified; I25.10 Atherosclerotic heart disease of native coronary artery without angina pectoris; I25.2 Old myocardial infarction; Z66 Do not resuscitate; Z79.02 Long term (current) use of antithrombotics/antiplatelets; Z79.82 Long term (current) use of aspirin; Z79.899 Other long term (current) drug therapy; Z91.81 History of falling; Z95.0 Presence of cardiac pacemaker; Z85.46 Personal history of malignant neoplasm of prostate; Z28.311 Partially vaccinated for COVID-19; Z28.21 Immunization not carried out because of patient refusal; Z23 Encounter for immunization
CPT/HCPCS: 12011; 36415; 70450; 70486; 71046; 72125; 80048; 80053; 80061; 80320; 83605; 83735; 83880; 84145; 84484; 85025; 85610; 85730; 87040; 87045; 87046; 87328; 87329; 90471; 90715; 93005; 93306; 94640; 94760; 96361; 96374; 99291

== ENCOUNTER 2024-09-15 10:10 | Emergency (ER) | payer MEDICARE ==
[2024-09-15 10:31] VITALS: PULSE 0
--- NOTE | 2024-09-15 10:44 | ED ---
General Adult HPI - General Stated complaint: Chest pain Time Seen by Provider: 09/15/24 10:26 Source: patient Mode of arrival: ambulatory Limitations: no limitations - History of Present Illness Initial comments: Dictation was produced using Wet[employer] dictation software. please excuse any grammatical, word or spelling errors. Chief Complaint: 89-year-old male presents with cardiac arrest History of Present Illness: Patient is 89-year-old male he is brought in by EMS from home for chest pain. According to EMS who provides entirety of history present illness patient had chest pain. He did not glean any more information for him given that he is hard of hearing and Togolese is not his first language. According to EMS patient had what they described was a seizure while walking into the emergency room. Unclear what patient's medical history is. Unable to obtain ROS secondary to mental status - Related Data Home Medications Medication Instructions Recorded Confirmed Aspirin EC [Ecotrin Low Dose] 81 mg PO DAILY 05/01/23 05/01/23 Cyanocobalamin [Vitamin B-12] 500 mcg PO DAILY 05/01/23 05/01/23 Previous Rx's Medication Instructions Recorded Atorvastatin [Lipitor] 40 mg PO DAILY #30 tab 05/14/22 Clopidogrel [Plavix] 75 mg PO DAILY #30 tab 05/14/22 Acetaminophen Tab [Tylenol Tab] 500 mg PO Q6H PRN #30 tablet 05/06/23 Amoxic-Pot Clav 875-125Mg 1 tab PO Q12HR 7 Days #14 tab 05/06/23 [Augmentin 875-125] Heparin Sodium,Porcine (1 ml) 5,000 unit SQ Q12HR #60 each 05/06/23 [Heparin Sodium] Ipratropium-Albuterol Nebulize 3 ml INHALATION RT-TID each 05/06/23 [Duoneb 0.5 mg-3 mg/3 ml Soln] Ipratropium-Albuterol Nebulize 3 ml INHALATION RT-TID PRN each 05/06/23 [Duoneb 0.5 mg-3 mg/3 ml Soln] Metoprolol Succinate (ER) [Toprol 25 mg PO DAILY tab 05/06/23 XL] Nitroglycerin Sl Tabs [Nitrostat] 0.4 mg SUBLINGUAL Q5M PRN tab 05/06/23 lisinopriL [Zestril] 5 mg PO DAILY tab 05/06/23 Allergies Allergy/AdvReac Type Severity Reaction Status Date / Time No Known Allergies Allergy Verified 05/01/23 15:35 Review of Systems ROS Statement: Those systems with pertinent positive or pertinent negative responses have been documented in the HPI. ROS Other: All systems not noted in ROS Statement are negative. Past Medical History Past Medical History: Atrial Fibrillation Additional Past Medical History / Comment(s): fluid on brain 2021, prostrate ca, short term forgetfulness, Last Myocardial Infarction Date:: 2021 History of Any Multi-Drug Resistant Organisms: None Reported Past Surgical History: No Surgical Hx Reported Past Anesthesia/Blood Transfusion Reactions: No Reported Reaction, Unable to Obtain Type of Cardiac Device: Unknown Device Placement Date:: 20 years ago, son says battery was just changed Past Psychological History: No Psychological Hx Reported Smoking Status: Never smoker Past Alcohol Use History: Daily Past Drug Use History: None Reported - Past Family History Brother(s) Additional Family Medical History / Comment(s): bradycardia General Exam - General Exam Comments Initial Comments: PHYSICAL EXAM: General Impression: Obtunded, no response, hazel HEENT: Normocephalic atraumatic Cardiovascular: Pulseless Chest: Easy to bag with BVM Abdomen: abdomen soft, non-distended, no organomegaly Musculoskeletal: no peripheral edema Neurological: Unresponsive Skin: Intact with no visualized rashes Limitations: no limitations Course Vital Signs 09/15/24 10:10 Pulse Rate 0 L - Reevaluation(s) Reevaluation #1: 09/15/24 10:40 Patient was being wheeled in by EMS when I was told by EMS that patient had a seizure as they were wheeling him into the emergency department. He said he had some chest pain. Patient was immediately found to be pulseless. He was moved rapidly in a T4 and CPR was initiated. Patient was found to be in V-fib arrest. Patient had defibrillation with return of spontaneous circulation after multiple cycles of CPR however went back into V-fib several more times. Patient was given a total of 3 rounds of epi, amiodarone. Dual defibrillation was attempted. Ultimately after approximately 24 minutes patient was at cardiac standstill on ultrasound. Given patient's age and condition despite resuscitative efforts CPR was discontinued. Time of was pronounced at 10:38 AM. Reevaluation #2: 09/15/24 11:07 @11:05 AM patient's son Soren was notified of his passing. Reevaluation #3: 09/15/24 11:09 Case was discussed with medical records auditor at 11:09 AM Medical Decision Making - Medical Decision Making Was pt. sent in by a medical professional or institution (, PA, IT ADMINISTRATIVE ASSISTANT, urgent care, hospital, or [facility]...) When possible be specific @ -No Did you speak to anyone other than the patient for history (EMS, parent, family, police, friend...)? What history was obtained from this source @ -No Did you review nursing and triage notes (agree or disagree)? Why? @ -I reviewed and agree with nursing and triage notes Were old charts reviewed (outside hosp., previous admission, EMS record, old EKG, old radiological studies, urgent care reports/EKG's, [facility] records)? Report findings @ -No old charts were reviewed Differential Diagnosis (chest pain, altered mental status, abdominal pain women, abdominal pain men, vaginal bleeding, musculoskeletal, weakness, fever, dyspnea, syncope, headache, dizziness, GI bleed, back pain, seizure, CVA, palpatations, mental health)? @ -Differential Chest Pain: Stable Angina, Unstable Angina, STEMI, NSTEMI Aortic Dissection, Pneumothorax, Musculoskeletal, Esophageal Spasm GERD, Cholecystitis, Pancreatitis, Zoster, this is not meant to be an all-inclusive list. EKG interpreted by me (3pts min.). @ -My EKG interpretation: Ventricular rate 99, ST segment elevation CA. No NH prolongation, no QTC prolongation. X-rays interpreted by me (1pt min.). @ -None done CT interpreted by me (1pt min.). @ -None done U/S interpreted by me (1pt. min.). @ -None done What testing was considered but not performed or refused? (CT, X-rays, U/S, labs)? Why? @ -None What meds were considered but not given or refused? Why? @ -None Was smoking cessation discussed for >3mins.? @ -No Were there social determinants of health that impacted care today? How? (Homelessness, low income, unemployed, alcoholism, drug addiction, transportation, low edu. Level, literacy, decrease access to med. care, chcf, rehab)? @ -No Was there de-escalation of care discussed even if they declined (Discuss DNR or withdrawal of care, Hospice)? DNR status @ -No What co-morbidities impacted this encounter? (DM, HTN, Smoking, COPD, CAD, Cancer, CVA, ARF, Chemo, Hep., AIDS, mental health diagnosis, sleep apnea, morbid obesity)? @ -Pacemaker Was patient admitted / discharged? Hospital course, mention meds given and route, prescriptions, significant lab abnormalities, going to OR and other pertinent info. @ -89-year-old male presents to the emergency department cardiac arrest. Patient pulseless on arrival. According to EMS he was initially brought for chest pain. CPR was performed for approximately 24 to 25 minutes. Return of spontaneous circulation was achieved for couple minutes however ultimately patient was in intractable V-fib. Resuscitative efforts were discontinued at 10:38 AM. Please see above for further detail. Did you discuss the management of the patient with other professionals (professionals i.e. , PA, IT ADMINISTRATIVE ASSISTANT, lab, RT, psych nurse, social science instructor, panel coverer, teacher, aerospace engineer officer armament, case management director)? Give summary @ -No Was critical care preformed (if so, how long)? @ -Yes, 33 minutes Undiagnosed new problem with uncertain prognosis? @ -No Drug Therapy requiring intensive monitoring for toxicity (Heparin, Nitro, Insulin, Cardizem)? @ -No Were any procedures done? @ -No Diagnosis/symptom? Acute, or Chronic, or Acute on Chronic? Uncomplicated (without systemic symptoms) or Complicated (systemic symptoms)? @ -Cardiac arrest Side effects of treatment? @ -No Exacerbation, Progression, or Severe Exacerbation? @ -No Poses a threat to life or bodily function? How? (Chest pain, USA, CA, pneumonia, PE, COPD, DKA, ARF, appy, cholecystitis, CVA, Diverticulitis, Homicidal, Suicidal, threat to staff... and all critical care pts) @ -yes Disposition Clinical Impression: Cardiac arrest Disposition: Condition: Undetermined Is patient prescribed a controlled substance at d/c from ED?: No Referrals: None,Stated [Primary Care Provider] - 1-2 days Time of Disposition: 10:44 Preliminary Cause of : cardiac arrest
[2024-09-15] MEDS: AMIODARONE 360 MG in DEXTROSE 5% IN WATER 200 ML IV ONE (15:14)
[2024-09-15 15:21] VITALS: RESP 0
== END 2024-09-15 15:21 | disposition expired ==
LOC: EC 10:10
DX: I46.9 Cardiac arrest, cause unspecified (principal); Z95.0 Presence of cardiac pacemaker
CPT/HCPCS: 92950; 99285